=== PATIENT | female | born 1980 | race Caucasian/White ===

== ENCOUNTER 2018-03-05 14:30 | Observation (INO) | payer BC ==
[2018-03-05] MEDS: Sodium Chloride 0.9% 1,000 ML IV SCH (14:45)
[2018-03-05] MEDS ORDERED: Lisinopril 10 MG Tab PO ONE (15:28)
[2018-03-05] MEDS: Ondansetron 4 MG/2 ML SDV IV PRN ×2 (15:48→19:18)
[2018-03-05] MEDS: Ciprofloxacin in D5W 400 MG in Premix Bag 1 BAG IV SCH ×2 (15:51)
[2018-03-05] MEDS: Morphine 2 MG/ML Syringe IVPUSH PRN ×2 (17:35→19:18)
[2018-03-05] MEDS ORDERED: Cyclobenzaprine 10 MG Tab PO PRN (18:32)
[2018-03-05] MEDS ORDERED: ALPRAZolam 0.25 MG Tab PO PRN (18:39)
[2018-03-05] MEDS: Pantoprazole 40 MG Vial IVPUSH SCH (19:18)
[2018-03-05] MEDS ORDERED: Dicyclomine 10 MG Cap PO PRN (20:50)
[2018-03-05] MEDS ORDERED: HYDROmorphone 1 MG/ML Syringe IVPUSH PRN (20:51)
[2018-03-05] MEDS: Venlafaxine 37.5 MG Tab.ER PO SCH (23:23)
[2018-03-05] MEDS ORDERED: Venlafaxine 37.5 MG Cap.ER ONE (23:23)
[2018-03-06] MEDS: Morphine 2 MG/ML Syringe IVPUSH PRN ×5 (02:31→07:32)
[2018-03-06] MEDS: Sodium Chloride 0.9% 1,000 ML IV SCH ×2 (06:20→23:28)
[2018-03-06] MEDS: Ciprofloxacin in D5W 400 MG in Premix Bag 1 BAG IV SCH ×4 (06:21→18:29)
[2018-03-06] MEDS: Ondansetron 4 MG/2 ML SDV IV PRN (07:30)
[2018-03-06 08:11] LABS: ANION GAP 11.1 mmol/L (5-15); CHLORIDE,CL 103 mmol/L (98-115); SODIUM,NA 138 mmol/L (136-145)
[2018-03-06] MEDS ORDERED: Metoprolol Succinate 25 MG Tab.ER PO SCH (09:00)
[2018-03-06] MEDS ORDERED: Venlafaxine 37.5 MG Tab.ER PO SCH (09:00)
[2018-03-06] MEDS: Pantoprazole 40 MG Vial IVPUSH SCH (10:32)
[2018-03-06] MEDS: Acetaminophen 500 MG Tab PO PRN ×2 (10:53→23:27)
[2018-03-06] MEDS ORDERED: Sodium Chloride 0.9% 50 ML IV SCH (11:15)
[2018-03-06] MEDS ORDERED: Diatrizoate Meglumine/Diatrizoate Sodium 37% 120 ML Bottle PO ONE (11:15)
[2018-03-06] MEDS ORDERED: Iopamidol 612 MG/ML 75 ML Bottle IV ONE (11:15)
--- NOTE | 2018-03-06 13:12 | PCM.PN ---
- General Info Date of Service: 03/06/18 Functional Status: Reports: Pain Controlled (improved with morphine use), Tolerating Diet, Urinating. Denies: Ambulating - Review of Systems General: Reports: Weakness, Fatigue, Malaise, Chills. Denies: Fever HEENT: Denies: Headaches Pulmonary: Denies: Shortness of Breath Cardiovascular: Reports: Lightheadedness. Denies: Chest Pain, Palpitations Gastrointestinal: Reports: Abdominal Pain, Decreased Appetite, Diarrhea, Melena , Nausea. Denies: Hematochezia, Vomiting Genitourinary: Reports: No Symptoms Neurological: Reports: Dizziness. Denies: Headache Psychiatric: Reports: No Symptoms - Patient Data Vitals - Most Recent: Last Vital Signs Temp 97.5 F 03/06/18 11:00 Pulse 77 03/06/18 11:00 Resp 16 03/06/18 11:00 BP 106/65 03/06/18 11:00 Pulse Ox 98 03/06/18 11:00 Weight - Most Recent: 268 lb 8 oz I&O - Last 24 Hours: Intake & Output 03/05/18 03/06/18 03/06/18 22:59 06:59 14:59 Intake Total 100 1156 Output Total 300 Balance -200 1156 Lab Results Last 24 Hours: Laboratory Results - last 24 hr 03/06/18 03/06/18 Range/Units 07:10 07:10 WBC 13.65 H (5.00-10.00) 10^3/uL RBC 4.46 (3.80-5.50) 10^6/uL Hgb 13.4 (12.0-16.0) g/dL Hct 38.9 (37.0-47.0) % MCV 87.2 (82.0-92.0) fL MCH 30.0 (27.0-31.0) pg MCHC 34.4 (32.0-36.0) g/dL RDW 13.4 (11.5-14.5) % Plt Count 291 (150-400) 10^3/uL MPV 9.7 (7.4-10.4) fL Immature Gran % (Auto) 0.1 (0.0-5.0) % Neut % (Auto) 67.2 (50.0-70.0) % Lymph % (Auto) 21.9 (20.0-40.0) % [place] % (Auto) 8.0 (2.0-8.0) % Eos % (Auto) 2.7 (1.0-3.0) % Baso % (Auto) 0.1 (0.0-1.0) % Immature Gran # (Auto) 0.02 (0.00-0.50) 10^3/uL Neut # (Auto) 9.16 H (2.50-7.00) 10^3/uL Lymph # (Auto) 2.99 (1.00-4.00) 10^3/uL [place] # (Auto) 1.09 H (0.10-0.80) 10^3/uL Eos # (Auto) 0.37 H (0.10-0.30) 10^3/uL Baso # (Auto) 0.02 (0.00-0.10) 10^3/uL Sodium 138 (136-145) mmol/L Potassium 3.4 (3.3-5.3) mmol/L Chloride 103 (98-115) mmol/L Carbon Dioxide 27.3 (21.0-32.0) mmol/L Anion Gap 11.1 (5-15) mmol/L BUN 10 (6-25) mg/dL Creatinine 0.83 (0.51-1.17) mg/dL Est Cr Clr Drug Dosing 83.51 mL/min Estimated GFR (MDRD) > 60 mL/min Glucose 124 mg/dL Calcium 8.1 L (8.7-10.3) mg/dL Med Orders - Current: Current Medications Acetaminophen (Tylenol Extra Strength) 1,000 mg PO Q6H PRN PRN Reason: Pain Last Admin: 03/06/18 10:53 Dose: 1,000 mg Alprazolam (Xanax) 0.25 - 0.5 mg PO Q8H PRN PRN Reason: ANXIETY Cyclobenzaprine HCl (Flexeril) 10 mg PO DAILY PRN PRN Reason: Muscle Spasm Dicyclomine HCl (Bentyl) 10 mg PO TID PRN PRN Reason: Cramping Last Admin: 03/05/18 23:22 Dose: 10 mg Ciprofloxacin/Dextrose 400 mg/ (Premix) 200 mls @ 200 mls/hr IV BID@0700,1900 [facility] Last Admin: 03/06/18 06:21 Dose: 200 mls/hr Sodium Chloride (Normal Saline) 1,000 mls @ 75 mls/hr IV ASDIRECTED [facility] Last Admin: 03/06/18 06:20 Dose: 75 mls/hr Metoprolol Succinate (Toprol Xl) 25 mg PO DAILY [facility] Morphine Sulfate (Morphine) 2 mg IVPUSH Q1H PRN PRN Reason: Pain (moderate 4-6) Last Admin: 03/06/18 07:32 Dose: 2 mg Ondansetron HCl (Zofran) 4 mg IV Q4H PRN PRN Reason: Nausea/Vomiting Last Admin: 03/06/18 07:30 Dose: 4 mg Pantoprazole Sodium (Protonix Iv) 40 mg IVPUSH DAILY [facility] Last Admin: 03/06/18 10:32 Dose: 40 mg Venlafaxine HCl (Effexor Xr) 75 mg PO BEDTIME [facility] Last Admin: 03/05/18 23:23 Dose: 75 mg Discontinued Medications Hydromorphone HCl (Dilaudid) 1 mg IVPUSH Q4H PRN PRN Reason: Pain Last Admin: 03/05/18 22:05 Dose: 1 mg Lisinopril (Prinivil) 10 mg PO ONETIME ONE Stop: 03/05/18 15:29 Last Admin: 03/05/18 15:05 Dose: 10 mg Morphine Sulfate (Morphine) 2 mg IVPUSH Q2H PRN PRN Reason: Pain (moderate 4-6) Last Admin: 03/05/18 19:18 Dose: 2 mg Venlafaxine HCl (Effexor Xr) 75 mg PO DAILY [facility] - Exam Quality Assessment: No: Supplemental Oxygen, DVT Prophylaxis (score 0) General: Alert, Oriented, Cooperative, Mild Distress Lungs: Clear to Auscultation, Normal Respiratory Effort Cardiovascular: Regular Rhythm, No Murmurs, Tachycardia GI/Abdominal Exam: Soft, No Distention, Tender (epigastric, RUQ, and LUQ), Abnormal Bowel Sounds (hyperactive) Skin: Warm, Dry Neurological: Normal Speech Psy/Mental Status: Alert, Normal Affect - Problem List Review Problem List Initiated/Reviewed/Updated: Yes - My Orders Last 24 Hours: My Active Orders 03/05/18 14:30 Patient Status [ADT] Routine 03/05/18 15:23 Oxygen Therapy [RC] PRN Up ad Nelida [RC] DAILY VTE/DVT Education [RC] PER UNIT ROUTINE Vital Signs [RC] 0300,0700,1100,1500,1900,2300 Ondansetron [Zofran] 4 mg IV Q4H PRN Resuscitation Status Routine 03/05/18 15:26 Intake and Output [RC] 0600,1400,2200 03/05/18 15:30 Ciprofloxacin in D5W [Cipro in D5W 400 MG/200 ML] 400 mg Premix Bag 1 bag IV BID@0700,1900 Sodium Chloride 0.9% [Normal Saline] 1,000 ml IV ASDIRECTED 03/05/18 18:32 Cyclobenzaprine [Flexeril] 10 mg PO DAILY PRN 03/05/18 18:39 ALPRAZolam [Xanax] 0.25 - 0.5 mg PO Q8H PRN 03/05/18 18:45 Pantoprazole [ProTONIX IV] 40 mg IVPUSH DAILY 03/05/18 20:50 Dicyclomine [Bentyl] 10 mg PO TID PRN 03/05/18 23:15 Venlafaxine [Effexor XR] 75 mg PO BEDTIME 03/05/18 23:25 Morphine 2 mg IVPUSH Q1H PRN 03/05/18 Dinner Full Liquid Diet [DIET] 03/06/18 08:00 Abdomen Pelvis w wo Cont [CT] Routine 03/06/18 09:00 Metoprolol Succinate [Toprol XL] 25 mg PO DAILY 03/06/18 10:39 Acetaminophen [Tylenol Extra Strength] 1,000 mg PO Q6H PRN - Plan Plan:: HPI: This is a 37 year old female who presented to the [facility] yesterday with concerns of bloody diarrhea and vomiting. The patient questioned food poisoning from a restaurant the day prior as she states the diarrhea, chills, and vomiting happened about 12 hours later. No recent antibiotic use. 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 She has not had any abdominal surgeries. She does have a history of hemorrhoids , but denies any current issues. The patient had also been seen in the clinic recently for tachycardia and hypertension and started on toprol XL 25 mg daily. The patient was found to have a WBC of 20.6 with a left shift, so was subsequently admitted for antibiotics and fluids. Primary Impression/Plan: Colitis of transverse & ascending colon. Patient underwent CT abd/pelvis which noted "colitis involving transverse & ascending colon; pseudomembranous colitis is a consideration; ulcerative colitis is a another consideration". Cdiff is negative. Stool lactoferrin and basic enteric pathogen panel pending. WBC improved to 13.6 with no left shift. BMP stable. Continue cipro IV 400 mg BID. Continue IVF of NS at 75 mL/hr. Continue with zofran PRN, tylenol PRN, and morphine PRN. Patient given dilaudid 1 time for severe pain last night, but had a little trouble breathing so this was discontinued. Changed bentyl to 10 mg po TID scheduled. Patient has been afebrile. Will advance to soft diet for supper. Patient will likely need a colonoscopy as outpatient. No prior history of intestinal or bleeding issues. Will add toradol 15 mg IV q6 hours for pain. Repeat labs in AM. Tachycardia. HR 70-110s. Holding toprol XL. Hypertension. BP 106/65 with pulse of 77. She did receive a 1 time dose of lisinopril 10 mg on admission for BP of 142/102. Secondary Impression/Plan: Vitamin D deficiency, history. History of migraines without aura. Obesity. Depression. Continue effexor XR and xanax. Pedal edema. Patient has HCTZ to use as needed. This is on hold. DVT prophylaxis. Score 0. GI prophylaxis. Protonix 40 mg IV daily. Overall plan: Continue with IV fluids, antibiotics, and pain/nausea control. If patient able to keep soft diet down without issues and pain under control, she will likely be able to be discharged tomorrow.
[2018-03-06] MEDS: Ketorolac 30 MG/ML SDV IVPUSH SCH ×2 (14:24→19:36)
[2018-03-06] MEDS: Dicyclomine 10 MG Cap PO SCH ×2 (14:25→20:51)
[2018-03-06] MEDS: Venlafaxine 37.5 MG Tab.ER PO SCH (21:20)
[2018-03-07] MEDS: Ketorolac 30 MG/ML SDV IVPUSH SCH ×2 (01:49→07:01)
[2018-03-07] MEDS: Ciprofloxacin in D5W 400 MG in Premix Bag 1 BAG IV SCH ×2 (07:02)
[2018-03-07 08:37] LABS: ANION GAP 11.3 mmol/L (5-15); CHLORIDE,CL 106 mmol/L (98-115); SODIUM,NA 139 mmol/L (136-145)
[2018-03-07] MEDS: Dicyclomine 10 MG Cap PO SCH (09:08)
[2018-03-07] MEDS: Pantoprazole 40 MG Vial IVPUSH SCH (09:09)
--- NOTE | 2018-03-07 10:47 | PCM.DCSUM1 ---
Discharge Summary - Hospital Course Brief History: This is a 37 year old female who presented to the [facility] on 03/05/18 with concerns of vomiting and bloody diarrhea. The patient had questioned food poisoning from a local restaurant as the symptoms came on about 8-12 hours after eating there. No recent antibiotic use. 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 She was placed on toprol XL 25 mg daily. She was found to have an elevated WBC of 20.6 and was subsequently admitted for fluids and antibiotics. Denies past history of intestinal issues. No abdominal sugeries. She does have a history of hemorrhoids, but denies a current flare-up. Diagnosis: Stroke: No - Discharge Data Discharge Date: 03/07/18 Discharge Disposition: Home, Self-Care 01 Condition: Good - Patient Summary/Data Complications: None. Consults: None. Labs Pending at D/C: None. - Patient Instructions Diet, Other: Soft diet for the next two days. Then may advance diet as tolerated. Activity: As Tolerated, Rest and Relax Today Driving: May Drive Today Showering/Bathing: May Shower Notify Provider of: Fever, Increased Pain, Nausea and/or Vomiting (Increased diarrhea or bloody diarrhea, dizziness) - Discharge Plan *PRESCRIPTION DRUG MONITORING PROGRAM REVIEWED*: No *COPY OF PRESCRIPTION DRUG MONITORING REPORT IN PATIENT KENDAL: No Prescriptions/Med Rec: Ciprofloxacin HCl [Cipro] 500 mg PO BID #10 tablet Dicyclomine [Bentyl] 10 mg PO TID PRN #10 cap PRN Reason: abdominal cramps Omeprazole 20 mg PO DAILY #10 cap.sr Ondansetron [Zofran ODT] 4 mg PO Q6H PRN #15 tab.dis PRN Reason: Nausea Home Medications: Home Meds ALPRAZolam [Xanax] 0.25 - 0.5 mg PO Q8H PRN 03/05/18 [History] Cyclobenzaprine [Flexeril] 10 mg PO DAILY PRN 03/05/18 [History] Venlafaxine [Effexor XR] 75 mg PO DAILY 03/05/18 [History] hydroCHLOROthiazide [Hydrochlorothiazide] 25 mg PO DAILY PRN 03/05/18 [History] Acetaminophen [Tylenol Extra Strength] 1,000 mg PO Q6H PRN tablet 03/07/18 [Rx] Ciprofloxacin HCl [Cipro] 500 mg PO BID #10 tablet 03/07/18 [Rx] Dicyclomine [Bentyl] 10 mg PO TID PRN #10 cap 03/07/18 [Rx] Metoprolol Succinate [Toprol XL] 12.5 mg PO DAILY #15 tab 03/07/18 [Rx] Metoprolol Succinate [Toprol XL] 12.5 mg PO DAILY #15 tab.er 03/07/18 [Rx] Omeprazole 20 mg PO DAILY #10 cap.sr 03/07/18 [Rx] Ondansetron [Zofran ODT] 4 mg PO Q6H PRN #15 tab.dis 03/07/18 [Rx] Referrals: Mariella Fagan MD [Physician] - 03/10/18 - Discharge Summary/Plan Comment DC Time >30 min.: No Discharge Summary/Plan Comment: Date of admission: 03/05/18 Date of discharge: 03/07/18 Admitting Diagnosis: Primary: Bloody diarrhea, Leukocytosis, Hypertension, Tachycardia Secondary: Vitamin D deficiency, history of migraines without aura, obesity, depression, pedal edema. Final Diagnosis: Primary: Colitis of transverse & ascending colon, improving; Leukocytosis, improving; Hypertension, stable; Tachycardia, stable. Secondary: Vitamin D deficiency, history of migraines without aura, obesity, depression, pedal edema. Procedures performed: None Hospital Course: The patient's hospital course progressed as expected. The patient underwent a CT abd/pelvis that revealed "colitis involving transverse & ascending colon; pseudomembranous colitis is a consideration; ulcerative colitis is a another consideration". She had a positive lactoferrin stool test. The basic enteric pathogen panel and Cdiff were negative. She was treated with IV Cipro 400 mg BID. She was given IV fluids. She initially followed a full liquid diet and advanced to soft the day prior to discharge without increased pain or nausea/ vomiting. The patient remained afebrile. The WBC improved and was 11.9 on discharge with a left shift of 71.2%. She was given IV morphine initially for pain without much improvement. She was given a 1 time dose of dilaudid that did help the pain, but gave her a "lump" in her throat so this was discontinued. She was given IV toradol 15 mg scheduled and bentyl 10 mg TID scheduled with improvement noted. The stools were no longer bloody and continued to be brown diarrhea-like on the day of discharge. She was given IV protonix for GI prophylaxis. The patient's hemoglobin did go down some from admission, however this could be dilutional effect as well. Discharge hemoglobin 12.4. The patient' s admission blood pressure was 142/102 and she was given a 1 time dose of lisinopril 10 mg that brought it into the normal range. Her toprol XL was held during her stay as she was 100-110s systolic and pulse between 70-110s. New medications on discharge: -Cipro 500 mg po BID x 10 doses (total of 1 week given) -Bentyl 10 mg po TID PRN for abdominal cramps -Zofran ODT 4 mg po every 4 hours PRN nausea -Omeprazole 20 mg po daily x 1 week -Tylenol 1000 mg po every 6 hours PRN pain -Ibuprofen 600 mg po every 8 hours PRN pain New changes to home medications on discharge: -Decrease toprol XL to 12.5 mg po daily -Hold diclofenac Regular home medications on discharge: -Alprazolam 0.25-0.5 mg po every 8 hours PRN -Effexor XR 75 mg po daily -HCTZ 25 mg po daily PRN edema -Flexeril 10 mg po daily PRN Condition, Treatment, & Final Disposition: The patient is in stable condition at the time of discharge. She will be discharged home per self. She will follow- up in the clinic this week with Dr. Fagan. Discussed with patient that she will likely need a colonoscopy for further evaluation. Considerations at follow- up would include repeat hemoglobin, blood pressure and pulse evaluation, and discussion of possible Holter monitor for tachycardia episodes. - General Info Date of Service: 03/07/18 Functional Status: Reports: Pain Controlled, Tolerating Diet, Ambulating, Urinating. Denies: New Symptoms - Review of Systems General: Reports: Weakness, Fatigue, Chills. Denies: Fever HEENT: Reports: Glasses, Headaches Pulmonary: Denies: Shortness of Breath Cardiovascular: Reports: Lightheadedness. Denies: Chest Pain, Palpitations, Edema Gastrointestinal: Reports: Abdominal Pain, Decreased Appetite (tolerating a soft diet okay), Diarrhea (improved, last stool was not bloody). Denies: Nausea , Vomiting Genitourinary: Reports: No Symptoms Neurological: Reports: Dizziness, Headache Psychiatric: Reports: No Symptoms - Patient Data Vitals - Most Recent: Last Vital Signs Temp 98.5 F 03/07/18 07:00 Pulse 80 03/07/18 07:00 Resp 16 03/07/18 07:00 BP 116/74 03/07/18 07:00 Pulse Ox 97 03/07/18 07:00 Weight - Most Recent: 268 lb 8 oz I&O - Last 24 hours: Intake & Output 03/06/18 03/07/18 03/07/18 22:59 06:59 14:59 Intake Total 1181 1040 Output Total 600 900 Balance 581 140 Lab Results - Last 24 hrs: Laboratory Results - last 24 hr 03/07/18 03/07/18 03/07/18 Range/Units 07:30 07:40 07:40 WBC 11.92 H (5.00-10.00) 10^3/uL RBC 4.09 (3.80-5.50) 10^6/uL Hgb 12.4 (12.0-16.0) g/dL Hct 36.7 L (37.0-47.0) % MCV 89.7 (82.0-92.0) fL MCH 30.3 (27.0-31.0) pg MCHC 33.8 (32.0-36.0) g/dL RDW 13.2 (11.5-14.5) % Plt Count 267 (150-400) 10^3/uL MPV 9.6 (7.4-10.4) fL Immature Gran % (Auto) 0.2 (0.0-5.0) % Neut % (Auto) 71.2 H (50.0-70.0) % Lymph % (Auto) 18.7 L (20.0-40.0) % [place] % (Auto) 7.0 (2.0-8.0) % Eos % (Auto) 2.7 (1.0-3.0) % Baso % (Auto) 0.2 (0.0-1.0) % Immature Gran # (Auto) 0.02 (0.00-0.50) 10^3/uL Neut # (Auto) 8.49 H (2.50-7.00) 10^3/uL Lymph # (Auto) 2.23 (1.00-4.00) 10^3/uL [place] # (Auto) 0.84 H (0.10-0.80) 10^3/uL Eos # (Auto) 0.32 H (0.10-0.30) 10^3/uL Baso # (Auto) 0.02 (0.00-0.10) 10^3/uL Sodium 139 (136-145) mmol/L Potassium 4.0 (3.3-5.3) mmol/L Chloride 106 (98-115) mmol/L Carbon Dioxide 25.7 (21.0-32.0) mmol/L Anion Gap 11.3 (5-15) mmol/L BUN 9 (6-25) mg/dL Creatinine 0.81 (0.51-1.17) mg/dL Est Cr Clr Drug Dosing 85.57 mL/min Estimated GFR (MDRD) > 60 mL/min Glucose 110 mg/dL Calcium 7.9 L (8.7-10.3) mg/dL Magnesium 1.9 (1.8-2.4) mg/dL Albumin 2.72 L (3.00-4.80) g/dL Med Orders - Current: Current Medications Acetaminophen (Tylenol Extra Strength) 1,000 mg PO Q6H PRN PRN Reason: Pain Last Admin: 03/06/18 23:27 Dose: 1,000 mg Alprazolam (Xanax) 0.25 - 0.5 mg PO Q8H PRN PRN Reason: ANXIETY Cyclobenzaprine HCl (Flexeril) 10 mg PO DAILY PRN PRN Reason: Muscle Spasm Dicyclomine HCl (Bentyl) 10 mg PO TID [facility] Last Admin: 03/07/18 09:08 Dose: 10 mg Ciprofloxacin/Dextrose 400 mg/ (Premix) 200 mls @ 200 mls/hr IV BID@0700,1900 [facility] Last Admin: 03/07/18 07:02 Dose: 200 mls/hr Sodium Chloride (Normal Saline) 1,000 mls @ 75 mls/hr IV ASDIRECTED [facility] Last Admin: 03/06/18 23:28 Dose: 75 mls/hr Ketorolac Tromethamine (Toradol) 15 mg IVPUSH Q6H [facility] Stop: 03/11/18 13:25 Last Admin: 03/07/18 07:01 Dose: 15 mg Metoprolol Succinate (Toprol Xl) 25 mg PO DAILY [facility] Morphine Sulfate (Morphine) 2 mg IVPUSH Q1H PRN PRN Reason: Pain (moderate 4-6) Last Admin: 03/06/18 07:32 Dose: 2 mg Ondansetron HCl (Zofran) 4 mg IV Q4H PRN PRN Reason: Nausea/Vomiting Last Admin: 03/06/18 07:30 Dose: 4 mg Pantoprazole Sodium (Protonix Iv) 40 mg IVPUSH DAILY [facility] Last Admin: 03/07/18 09:09 Dose: 40 mg Venlafaxine HCl (Effexor Xr) 75 mg PO BEDTIME [facility] Last Admin: 03/06/18 21:20 Dose: 75 mg Discontinued Medications Dicyclomine HCl (Bentyl) 10 mg PO TID PRN PRN Reason: Cramping Last Admin: 03/05/18 23:22 Dose: 10 mg Hydromorphone HCl (Dilaudid) 1 mg IVPUSH Q4H PRN PRN Reason: Pain Last Admin: 03/05/18 22:05 Dose: 1 mg Lisinopril (Prinivil) 10 mg PO ONETIME ONE Stop: 03/05/18 15:29 Last Admin: 03/05/18 15:05 Dose: 10 mg Morphine Sulfate (Morphine) 2 mg IVPUSH Q2H PRN PRN Reason: Pain (moderate 4-6) Last Admin: 03/05/18 19:18 Dose: 2 mg Venlafaxine HCl (Effexor Xr) 75 mg PO DAILY [facility] - Exam Quality Assessment: Denies: Supplemental Oxygen, DVT Prophylaxis General: Reports: Alert, Oriented, Cooperative, No Acute Distress Lungs: Reports: Clear to Auscultation, Normal Respiratory Effort Cardiovascular: Reports: Regular Rate, Regular Rhythm, No Murmurs GI/Abdominal Exam: Soft, Non-Tender, No Distention, Abnormal Bowel Sounds ( hyperactive x 4 quadrants) Skin: Reports: Warm, Dry Neurological: Reports: Normal Speech Psy/Mental Status: Reports: Alert, Normal Affect, Normal Mood
== END 2018-03-07 11:15 | disposition home or self-care (01) ==
LOC: KA.MS 14:30
PROVIDERS: ADMIT Nurse Practitioner Family; ATTEND Nurse Practitioner Family
DX: K52.9 Noninfective gastroenteritis and colitis, unspecified (principal); R00.0 Tachycardia, unspecified; I10 Essential (primary) hypertension; E66.9 Obesity, unspecified; F32.9 Major depressive disorder, single episode, unspecified; R60.9 Edema, unspecified; Z79.899 Other long term (current) drug therapy; Z91.040 Latex allergy status
CPT/HCPCS: 36415; 74177; 80048; 82040; 83735; 85025; A9270; C9113; J0744; J1170; J1885; J2270; J2405; J7030; J7050; Q9963; Q9967; 96365; 96366; 96375; 96376; G0378; G0379

== ENCOUNTER 2018-09-20 10:25 | Emergency (ER) | payer BC ==
[2018-09-20] MEDS ORDERED: Sodium Chloride 0.9% 10 ML Syringe FLUSH PRN (10:41)
[2018-09-20] MEDS ORDERED: Sodium Chloride 0.9% 1,000 ML IV ONE (10:41)
--- NOTE | 2018-09-20 10:56 | EDM.PDOC ---
ED HPI GENERAL MEDICAL PROBLEM - General Stated Complaint: heart racing Time Seen by Provider: 09/20/18 10:25 Source of Information: Reports: Patient History Limitations: Reports: No Limitations - History of Present Illness INITIAL COMMENTS - FREE TEXT/NARRATIVE: Patient presents with heart racing that started about 10-15 minutes ago. She denies any chest pain but can tell when it is very fast by a pounding sensation coming from the mid-sternal area. When the rate comes down, even briefly, the pounding disappears. She also feels a lump in her throat and some dyspnea, but no pain in neck, jaw or arms. She has had these episodes at least 1-2x/week for the past two months. They usually last no longer than 10 minutes so today was her longest episode. She used to take metoprolol for tachycardia but it was discontinued last February after a bout with colitis. She says it was initiated to control heart rates in the 120's and up to 140's but never like the last two months. She isn't on anything for rate control currently. She had a Holter monitor placed last Fall in [facility] when she was started on the metoprolol, which she only took for a couple weeks before it was dc'd while hospitalized with colitis. - Related Data Allergies Allergy/AdvReac Type Severity Reaction Status Date / Time hydromorphone [From Dilaudid] Allergy Shortness Verified 09/20/18 10:57 of Breath latex Allergy Rash Verified 03/05/18 14:57 Home Meds: Home Meds ALPRAZolam [Xanax] 0.25 - 0.5 mg PO Q8H PRN 03/05/18 [History] Cyclobenzaprine [Flexeril] 10 mg PO DAILY PRN 03/05/18 [History] Venlafaxine [Effexor XR] 75 mg PO DAILY 03/05/18 [History] hydroCHLOROthiazide [Hydrochlorothiazide] 25 mg PO DAILY PRN 03/05/18 [History] Acetaminophen [Tylenol Extra Strength] 1,000 mg PO Q6H PRN tablet 03/07/18 [Rx] Cholecalciferol (Vitamin D3) [Vitamin D3] 1,000 units PO DAILY 09/20/18 [History ] Cyanocobalamin (Vitamin B12) [Vitamin B13] 500 mcg PO 09/20/18 [History] Past Medical History Cardiovascular History: Reports: Hypertension Genitourinary History: Reports: UTI, Recurrent 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 Musculoskeletal History: Reports: Arthritis - Infectious Disease History Infectious Disease History: Reports: Chicken Pox - Past Surgical History HEENT Surgical History: Reports: Tonsillectomy Other HEENT Surgeries/Procedures: pseudo tumor cerebri in 2002 Social & Family History - Family History Family Medical History: Noncontributory - Caffeine Use Caffeine Use: Reports: Coffee, Soda Other Caffeine Use: 1 pop/ day ED ROS GENERAL - Review of Systems Review Of Systems: See Below Constitutional: Denies: Fever, Malaise, Weakness HEENT: Reports: No Symptoms Respiratory: Reports: Shortness of Breath. Denies: Cough Cardiovascular: Reports: Palpitations. Denies: Chest Pain, Syncope Endocrine: Reports: No Symptoms GI/Abdominal: Denies: Abdominal Pain, Nausea, Vomiting : Denies: Dysuria, Flank Pain Musculoskeletal: Denies: Neck Pain, Shoulder Pain, Arm Pain, Back Pain, Hand Pain, Leg Pain Skin: Denies: Cyanosis, Jaundice, Mottled, Pallor, Diaphoresis Neurological: Denies: Confusion, Dizziness, Headache, Seizure, Syncope, Weakness , Change in Speech Psychiatric: Reports: Anxiety. Denies: Agitation, Confusion ED EXAM, GENERAL - Physical Exam Exam: See Below Exam Limited By: No Limitations General Appearance: Alert, WD/WN, No Apparent Distress Eye Exam: Bilateral Eye: EOMI, Normal Inspection, PERRL Ears: Normal External Exam, Hearing Grossly Normal Nose: Normal Inspection, No Blood Throat/Mouth: Normal Inspection, Normal Lips, Normal Voice, No Airway Compromise Head: Atraumatic, Normocephalic Neck: Normal Inspection, Supple, Non-Tender, Full Range of Motion. No: Carotid Bruit Respiratory/Chest: No Respiratory Distress, Lungs Clear, Normal Breath Sounds, No Accessory Muscle Use Cardiovascular: No Edema, No Gallop, No JVD, No Murmur, No Rub, Tachycardia Peripheral Pulses: 2+: Carotid (L), Carotid (R), Radial (L), Radial (R) GI/Abdominal: Normal Bowel Sounds, Soft, Non-Tender, No Organomegaly, No Distention Back Exam: Normal Inspection, Full Range of Motion. No: CVA Tenderness (L), CVA Tenderness (R) Extremities: Normal Inspection, Normal Range of Motion Neurological: Alert, Oriented, Normal Cognition, No Motor/Sensory Deficits Psychiatric: Normal Affect, Normal Mood Skin Exam: Warm, Dry, Intact, Normal Color, No Rash Course - Vital Signs Last Recorded V/S: Last Vital Signs Temp 97.8 F 09/20/18 10:30 Pulse 87 09/20/18 12:27 Resp 17 09/20/18 12:27 BP 133/72 09/20/18 12:27 Pulse Ox 97 09/20/18 12:27 - Orders/Labs/Meds Orders: Active Orders 24 hr Category Date Time Status EKG Documentation Completion [RC] ASDIRECTED Care 09/20/18 10:41 Active Saline Lock Insert [OM.PC] Routine Oth 09/20/18 10:41 Ordered Labs: Laboratory Tests 09/20/18 09/20/18 09/20/18 Range/Units 10:30 10:30 10:30 WBC 11.62 H (5.00-10.00) 10^3/uL RBC 5.05 (3.80-5.50) 10^6/uL Hgb 15.0 D (12.0-16.0) g/dL Hct 42.6 (37.0-47.0) % MCV 84.4 D (82.0-92.0) fL MCH 29.7 (27.0-31.0) pg MCHC 35.2 (32.0-36.0) g/dL RDW 13.1 (11.5-14.5) % Plt Count 359 D (150-400) 10^3/uL MPV 9.7 (7.4-10.4) fL Immature Gran % (Auto) 0.2 (0.0-5.0) % Neut % (Auto) 54.3 (50.0-70.0) % Lymph % (Auto) 35.5 (20.0-40.0) % [place] % (Auto) 7.6 (2.0-8.0) % Eos % (Auto) 2.1 (1.0-3.0) % Baso % (Auto) 0.3 (0.0-1.0) % Immature Gran # (Auto) 0.02 (0.00-0.50) 10^3/uL Neut # (Auto) 6.33 (2.50-7.00) 10^3/uL Lymph # (Auto) 4.12 H (1.00-4.00) 10^3/uL [place] # (Auto) 0.88 H (0.10-0.80) 10^3/uL Eos # (Auto) 0.24 (0.10-0.30) 10^3/uL Baso # (Auto) 0.03 (0.00-0.10) 10^3/uL D-Dimer, Quantitative < 100 (<400) ng/mL Sodium 141 (136-145) mmol/L Potassium 3.7 (3.3-5.3) mmol/L Chloride 103 (98-115) mmol/L Carbon Dioxide 24.1 (21.0-32.0) mmol/L Anion Gap 17.6 H (5-15) mmol/L BUN 14 (6-25) mg/dL Creatinine 0.84 (0.51-1.17) mg/dL Est Cr Clr Drug Dosing 82.51 mL/min Estimated GFR (MDRD) > 60 mL/min Glucose 104 H (75 - 99) mg/dL Calcium 9.0 (8.7-10.3) mg/dL Total Bilirubin 0.6 (0.2-1.0) mg/dL AST 19 (15-37) U/L ALT 23 (12-78) U/L Alkaline Phosphatase 111 (46-116) IU/L Troponin I 0.05 (0.00-0.070) ng/mL Total Protein 7.7 (6.4-8.2) g/dL Albumin 3.80 (3.00-4.80) g/dL Specimen Type Urine Color (YELLOW) Urine Appearance (CLEAR) Urine pH (5.0-9.0) Ur Specific [place] (1.005-1.030) Urine Protein (NEGATIVE) mg/dL Urine Glucose (UA) (NEGATIVE) mg/dL Urine Ketones (NEGATIVE) mg/dL Urine Occult Blood (NEGATIVE) Urine Nitrite (NEGATIVE) Urine Bilirubin (NEGATIVE) Urine Urobilinogen (0.2-1.0) E.U./dL Ur Leukocyte Esterase (NEGATIVE) Urine RBC (0-5) /HPF Urine WBC (0-5) /HPF Ur Epithelial Cells /LPF Urine Bacteria (NONE TO FEW) /HPF 09/20/18 09/20/18 Range/Units 11:10 12:42 WBC (5.00-10.00) 10^3/uL RBC (3.80-5.50) 10^6/uL Hgb (12.0-16.0) g/dL Hct (37.0-47.0) % MCV (82.0-92.0) fL MCH (27.0-31.0) pg MCHC (32.0-36.0) g/dL RDW (11.5-14.5) % Plt Count (150-400) 10^3/uL MPV (7.4-10.4) fL Immature Gran % (Auto) (0.0-5.0) % Neut % (Auto) (50.0-70.0) % Lymph % (Auto) (20.0-40.0) % [place] % (Auto) (2.0-8.0) % Eos % (Auto) (1.0-3.0) % Baso % (Auto) (0.0-1.0) % Immature Gran # (Auto) (0.00-0.50) 10^3/uL Neut # (Auto) (2.50-7.00) 10^3/uL Lymph # (Auto) (1.00-4.00) 10^3/uL [place] # (Auto) (0.10-0.80) 10^3/uL Eos # (Auto) (0.10-0.30) 10^3/uL Baso # (Auto) (0.00-0.10) 10^3/uL D-Dimer, Quantitative (<400) ng/mL Sodium (136-145) mmol/L Potassium (3.3-5.3) mmol/L Chloride (98-115) mmol/L Carbon Dioxide (21.0-32.0) mmol/L Anion Gap (5-15) mmol/L BUN (6-25) mg/dL Creatinine (0.51-1.17) mg/dL Est Cr Clr Drug Dosing mL/min Estimated GFR (MDRD) mL/min Glucose (75 - 99) mg/dL Calcium (8.7-10.3) mg/dL Total Bilirubin (0.2-1.0) mg/dL AST (15-37) U/L ALT (12-78) U/L Alkaline Phosphatase (46-116) IU/L Troponin I 0.12 H* (0.00-0.070) ng/mL Total Protein (6.4-8.2) g/dL Albumin (3.00-4.80) g/dL Specimen Type Urincc Urine Color Yellow (YELLOW) Urine Appearance Slightly cloudy H (CLEAR) Urine pH 7.0 (5.0-9.0) Ur Specific [place] 1.010 (1.005-1.030) Urine Protein Negative (NEGATIVE) mg/dL Urine Glucose (UA) Negative (NEGATIVE) mg/dL Urine Ketones Negative (NEGATIVE) mg/dL Urine Occult Blood Trace-intact H (NEGATIVE) Urine Nitrite Negative (NEGATIVE) Urine Bilirubin Negative (NEGATIVE) Urine Urobilinogen 0.2 (0.2-1.0) E.U./dL Ur Leukocyte Esterase Negative (NEGATIVE) Urine RBC 0-5 (0-5) /HPF Urine WBC 0-5 (0-5) /HPF Ur Epithelial Cells Few /LPF Urine Bacteria Few (NONE TO FEW) /HPF Meds: Medications Discontinued Medications Generic Name Dose Route Start Last Admin Trade Name Freq PRN Reason Stop Dose Admin Sodium Chloride 1,000 mls @ 999 mls/hr 09/20/18 10:41 09/20/18 11:07 Normal Saline IV 09/20/18 11:41 999 mls/hr .BOLUS ONE Administration Metoprolol Tartrate 50 mg 09/20/18 11:28 09/20/18 11:39 Lopressor PO 09/20/18 11:29 50 mg ONETIME ONE Administration Sodium Chloride 10 ml 09/20/18 10:41 09/20/18 11:09 Saline Flush FLUSH 10 ml Q8HR PRN Administration keep vein open - Re-Assessments/Exams Free Text/Narrative Re-Assessment/Exam: 09/20/18 11:32 Heart rate came down spontaneously from 190's to 105-115 range after exam and fluid bolus. Since she was on metoprolol previously I will give a po dose of metoprolol 50 mg now. Labs and EKG are good. 09/20/18 12:39 HR now 81-87 after metoprolol. BP also down nicely. We will recheck troponin and have patient follow up with her PCP in the clinic this afternoon which she had scheduled earlier and then canceled when she came to ER. 09/20/18 13:01 Discussed findings and plan with patient. She is feeling well now and was discharged in stable condition to go to her clinic appt. We will call her with results of 2nd troponin. 09/20/18 13:50 I called and discussed 2nd troponin of 0.[address] Fagan since patient is now there seeing her in clinic. Initial troponin was 0.05 and repeat was drawn 2 hours and [address] Fagan has our EKG and ER note. She told me she will repeat the EKG and assess patient to determine whether she is going to admit here for non-STEMI vs transfer to [place]. I informed her that I will be of assistance in any way she would like. Also considering whether the bump could be due to cardiac strain from the episode of tachycardia. Departure - Departure Time of Disposition: 12:52 Disposition: Home, Self-Care 01 Condition: Good Clinical Impression: Paroxysmal sinus tachycardia Referrals: Mariella Fagan MD [Primary Care Provider] - Forms: ED Department Discharge Additional Instructions: 1. Go to see your PCP as scheduled at 1:30. 2. We will call you with the results of the second troponin when it is resulted. - My Orders Last 24 Hours: My Active Orders 09/20/18 10:41 EKG Documentation Completion [RC] ASDIRECTED Saline Lock Insert [OM.PC] Routine - Assessment/Plan Last 24 Hours: My Active Orders 09/20/18 10:41 EKG Documentation Completion [RC] ASDIRECTED Saline Lock Insert [OM.PC] Routine
[2018-09-20 11:14] LABS: ANION GAP 17.6 mmol/L (5-15); CHLORIDE,CL 103 mmol/L (98-115); SODIUM,NA 141 mmol/L (136-145)
[2018-09-20] MEDS ORDERED: Metoprolol Tartrate 50 MG Tab PO ONE (11:28)
--- NOTE | 2018-09-20 11:57 | CR ---
[id number] RAD/RAD Chest PA And Lateral EXAM: RAD Chest PA And Lateral INDICATION: TACHYCARDIA. COMPARISON: None. DISCUSSION: Cardiomediastinal silhouette is normal in size and contour. No infiltrate, effusion, pneumothorax, or edema. IMPRESSION: No acute cardiopulmonary abnormality. Geoffrey Connors DO 09/20/18 1156 Thank you for allowing us to participate in the care of your patient.
== END 2018-09-20 13:00 | disposition home or self-care (01) ==
LOC: KA.ED 10:25
DX: I47.1 Supraventricular tachycardia (principal); I10 Essential (primary) hypertension; Z88.5 Allergy status to narcotic agent; Z91.040 Latex allergy status; Z79.899 Other long term (current) drug therapy
CPT/HCPCS: 36415; 71046; 80053; 81001; 84484; 85025; 85379; 93005; 96360; 99285-25; A9270-GY; J7030

== ENCOUNTER 2018-09-20 14:40 | Observation (INO) | payer BC ==
[2018-09-20] MEDS ORDERED: Sodium Chloride 0.9% 10 ML Syringe FLUSH PRN (15:22)
[2018-09-20] MEDS ORDERED: Atropine 0.1 MG/ML 10 ML Syringe IVPUSH PRN (16:25)
[2018-09-20] MEDS ORDERED: Lidocaine 2% 100 MG/5 ML Syringe IVPUSH PRN (16:25)
[2018-09-20] MEDS ORDERED: EPINEPHrine 1:10,000 1 MG/10 ML Syringe IVPUSH PRN (16:25)
[2018-09-20] MEDS ORDERED: Nitroglycerin 0.4 MG Tab.SL SL PRN (16:25)
[2018-09-20] MEDS ORDERED: Heparin Sodium/D5W 25,000 UNITS/250 ML BAG IV SCH (18:00)
--- NOTE | 2018-09-20 18:46 | PCM.DCSUM1 ---
Discharge Summary - Discharge Data Discharge Date: 09/20/18 Discharge Disposition: DC/Tfer to Acute Hospital 02 Condition: Good - Discharge Plan Home Medications: Home Meds ALPRAZolam [Xanax] 0.25 - 0.5 mg PO Q8H PRN 03/05/18 [History] Venlafaxine [Effexor XR] 75 mg PO DAILY 03/05/18 [History] Acetaminophen [Tylenol Extra Strength] 1,000 mg PO Q6H PRN tablet 03/07/18 [Rx] Cholecalciferol (Vitamin D3) [Vitamin D3] 1,000 units PO DAILY 09/20/18 [History ] Cyanocobalamin (Vitamin B12) [Vitamin B13] 500 mcg PO DAILY 09/20/18 [History] Cyclobenzaprine [Flexeril] 10 mg PO ASDIRECTED 09/20/18 [History] Cyclobenzaprine [Flexeril] 10 mg PO ASDIRECTED PRN 09/20/18 [History] medroxyPROGESTERone Acetate [Depo-Provera] 150 mg IM ASDIRECTED 09/20/18 [ History] - Patient Data Vitals - Most Recent: Last Vital Signs Temp 37.0 C 09/20/18 18:00 Pulse 72 09/20/18 18:00 Resp 18 09/20/18 18:00 BP 137/88 09/20/18 18:00 Pulse Ox 98 09/20/18 18:00 Weight - Most Recent: 126.779 kg Lab Results - Last 24 hrs: Laboratory Results - last 24 hr 09/20/18 Range/Units 16:00 Troponin I 0.16 H* (0.00-0.070) ng/mL Med Orders - Current: Current Medications Atropine Sulfate (Atropine 0.1 Mg/Ml) 0 mg IVPUSH ASDIRECTED PRN PRN Reason: Heart Epinephrine HCl (Epinephrine 1:10,000) 1 mg IVPUSH ASDIRECTED PRN PRN Reason: Heart Heparin Sodium/Dextrose () 25,000 units in 250 mls @ 1.268 mls/hr IV TITRATE LEONIE; Protocol Last Admin: 09/20/18 18:26 Dose: 12 units/kg/hr, 15.213 mls/hr Lidocaine HCl (Xylocaine 2%) 0 mg IVPUSH ASDIRECTED PRN PRN Reason: Heart Nitroglycerin (Nitrostat) 0.4 mg SL ASDIRECTED PRN PRN Reason: Heart Last Admin: 09/20/18 17:12 Dose: 0.4 mg Sodium Chloride (Saline Flush) 10 ml FLUSH Q8HR PRN PRN Reason: keep vein open
== END 2018-09-20 18:30 ==
LOC: KA.MS 14:40
PROVIDERS: ADMIT Family Medicine; ATTEND Family Medicine
DX: I21.4 Non-ST elevation (NSTEMI) myocardial infarction (principal); I10 Essential (primary) hypertension; F32.9 Major depressive disorder, single episode, unspecified; E66.01 Morbid (severe) obesity due to excess calories; Z68.42 Body mass index [BMI] 45.0-49.9, adult; Z88.5 Allergy status to narcotic agent; Z91.040 Latex allergy status; Z79.899 Other long term (current) drug therapy; I47.1 Supraventricular tachycardia
CPT/HCPCS: 36415; 71046; 80053; 81001; 84484; 85025; 85379; 93005; 96360; 96365; 99285-25; A9270-GY; G0378; J1644; J7030

== ENCOUNTER 2018-10-25 12:00 | Emergency (ER) | payer BC ==
--- NOTE | 2018-10-25 12:41 | EDM.PDOC ---
ED HPI GENERAL MEDICAL PROBLEM - General Chief Complaint: Cardiovascular Problem Stated Complaint: rapid heart rate Time Seen by Provider: 10/25/18 12:23 Source of Information: Reports: Patient History Limitations: Reports: No Limitations - History of Present Illness INITIAL COMMENTS - FREE TEXT/NARRATIVE: Patient is a 38-year-old female who presents to the emergency department this afternoon with a complaint of racing heart. She has a history of SVT and was been evaluated at [facility] in [place] on 09/20/2018. At that time patient was placed on metoprolol. No EP studies or procedures done at that time. Patient has been asymptomatic up to this point. Patient denies chest pain, shortness of breath, social drugs, change in medication, or over-the- counter stimulants. Onset: Today Onset Date: 10/25/18 Onset Time: 03:00 Duration: Minutes: Location: Reports: Chest Quality: Reports: Other (Palpitations) Improves with: Reports: Other (Spontaneously) Worsens with: Reports: None Context: Denies: Trauma Associated Symptoms: Reports: No Other Symptoms - Related Data Allergies Allergy/AdvReac Type Severity Reaction Status Date / Time hydromorphone [From Dilaudid] Allergy Shortness Verified 10/25/18 12:21 of Breath latex Allergy Rash Verified 10/25/18 12:21 Home Meds: Home Meds ALPRAZolam [Xanax] 0.25 - 0.5 mg PO Q8H PRN 03/05/18 [History] Venlafaxine [Effexor XR] 75 mg PO BEDTIME 03/05/18 [History] Acetaminophen [Tylenol Extra Strength] 1,000 mg PO Q6H PRN tablet 03/07/18 [Rx] Cholecalciferol (Vitamin D3) [Vitamin D3] 1,000 units PO DAILY 09/20/18 [History ] Cyanocobalamin (Vitamin B12) [Vitamin B12] 500 mcg PO DAILY 09/20/18 [History] Cyclobenzaprine [Flexeril] 10 mg PO ASDIRECTED 09/20/18 [History] Metoprolol Succinate [Toprol XL] 37.5 mg PO BID 10/25/18 [History] Past Medical History HEENT History: Reports: Impaired Vision Cardiovascular History: Reports: Hypertension, Other (See Below) Other Cardiovascular History: tachycardia, palpatations Respiratory History: Reports: SOB Gastrointestinal History: Reports: Other (See Below) Other Gastrointestinal History: colitis Genitourinary History: Reports: UTI, Recurrent 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 Musculoskeletal History: Reports: Arthritis Psychiatric History: Reports: Anxiety, Depression Endocrine/Metabolic History: Reports: Obesity/BMI 30+ Dermatologic History: Reports: Eczema - Infectious Disease History Infectious Disease History: Reports: Chicken Pox, Influenza - Past Surgical History HEENT Surgical History: Reports: Tonsillectomy Other HEENT Surgeries/Procedures: pseudo tumor cerebri in 2002 Respiratory Surgical History: Reports: None GI Surgical History: Reports: None Female Surgical History: Reports: None Endocrine Surgical History: Reports: None Musculoskeletal Surgical History: Reports: None Social & Family History - Family History Family Medical History: Noncontributory - Tobacco Use Smoking Status *Q: Never Smoker - Caffeine Use Caffeine Use: Reports: None Other Caffeine Use: 1 pop/ day - Recreational Drug Use Recreational Drug Use: No ED ROS GENERAL - Review of Systems Review Of Systems: ROS reveals no pertinent complaints other than HPI. Constitutional: Reports: Weakness HEENT: Reports: No Symptoms Respiratory: Reports: No Symptoms Cardiovascular: Reports: Lightheadedness, Palpitations Endocrine: Reports: No Symptoms GI/Abdominal: Reports: Nausea : Reports: No Symptoms Musculoskeletal: Reports: No Symptoms Skin: Reports: No Symptoms Neurological: Reports: No Symptoms Psychiatric: Reports: No Symptoms Hematologic/Lymphatic: Reports: No Symptoms Immunologic: Reports: No Symptoms ED EXAM, GENERAL - Physical Exam Exam: See Below Exam Limited By: No Limitations General Appearance: Alert, WD/WN, No Apparent Distress Eye Exam: Bilateral Eye: Normal Inspection Nose: Normal Inspection, Normal Mucosa, No Blood Throat/Mouth: Normal Inspection, Normal Oropharynx, No Airway Compromise Head: Atraumatic, Normocephalic Neck: Normal Inspection, Supple Respiratory/Chest: No Respiratory Distress, Lungs Clear, Normal Breath Sounds, No Accessory Muscle Use, Chest Non-Tender Cardiovascular: Regular Rate, Rhythm, No Murmur, No Rub GI/Abdominal: Normal Bowel Sounds, Soft, Non-Tender Back Exam: Normal Inspection. No: CVA Tenderness (L), CVA Tenderness (R) Extremities: Normal Inspection, No Pedal Edema Neurological: Alert, Oriented, CN II-XII Intact, Normal Cognition, No Motor/ Sensory Deficits Psychiatric: Normal Affect, Normal Mood Skin Exam: Warm, Dry, Intact, Normal Color, No Rash Lymphatic: No Adenopathy EKG INTERPRETATION EKG Date: 10/25/18 Time: 12:10 Rhythm: Other (SVT) Rate (Beats/Min): 180 [place]: Normal P-Wave: Present QRS: Normal ST-T: Other (Nonspecific) Comparison: Change From Previous EKG EKG Interpretation Comments: Repeat EKG at 1233 showed normal sinus rhythm at 75 Course - Vital Signs Last Recorded V/S: Last Vital Signs Temp 97.4 F 10/25/18 12:18 Pulse 81 10/25/18 12:34 Resp 16 10/25/18 12:34 BP 150/81 H 10/25/18 12:34 Pulse Ox 100 10/25/18 12:34 - Orders/Labs/Meds Orders: Active Orders 24 hr Category Date Time Status EKG Documentation Completion [RC] ASDIRECTED Care 10/25/18 12:24 Ordered EKG Documentation Completion [RC] ASDIRECTED Care 10/25/18 12:35 Ordered COMPREHENSIVE METABOLIC PN,CMP [CHEM] Stat Lab 10/25/18 12:24 Ordered INR,PT,PROTHROMBIN TIME [COAG] Stat Lab 10/25/18 12:24 Ordered MAGNESIUM [CHEM] Stat Lab 10/25/18 12:24 Ordered PTT,PARTIAL THROMBOPLSTIN TIME [COAG] Stat Lab 10/25/18 12:24 Ordered EKG 12 Lead [EK] Routine Ther 10/25/18 12:24 Ordered EKG 12 Lead [EK] Routine Ther 10/25/18 12:34 Ordered Labs: Laboratory Tests 10/25/18 Range/Units 12:25 WBC 11.50 H (5.00-10.00) 10^3/uL RBC 4.84 (3.80-5.50) 10^6/uL Hgb 14.6 (12.0-16.0) g/dL Hct 41.6 (37.0-47.0) % MCV 86.0 (82.0-92.0) fL MCH 30.2 (27.0-31.0) pg MCHC 35.1 (32.0-36.0) g/dL RDW 13.0 (11.5-14.5) % Plt Count 334 (150-400) 10^3/uL MPV 9.4 (7.4-10.4) fL Immature Gran % (Auto) 0.1 (0.0-5.0) % Neut % (Auto) 51.9 (50.0-70.0) % Lymph % (Auto) 35.6 (20.0-40.0) % [place] % (Auto) 9.6 H (2.0-8.0) % Eos % (Auto) 2.5 (1.0-3.0) % Baso % (Auto) 0.3 (0.0-1.0) % Immature Gran # (Auto) 0.01 (0.00-0.50) 10^3/uL Neut # (Auto) 5.98 (2.50-7.00) 10^3/uL Lymph # (Auto) 4.09 H (1.00-4.00) 10^3/uL [place] # (Auto) 1.10 H (0.10-0.80) 10^3/uL Eos # (Auto) 0.29 (0.10-0.30) 10^3/uL Baso # (Auto) 0.03 (0.00-0.10) 10^3/uL - Re-Assessments/Exams Free Text/Narrative Re-Assessment/Exam: 10/25/18 12:57 Patient afebrile, vital signs stable, heart rate in the 70s, BP 140s over 80s. Patient states she feels much better. Denies chest pain, shortness of breath, lightheadedness, dizziness, or nausea. Discussed case and reviewed EKGs with Dr. Gilmore, derrick worker at [facility]. Recommendation was to increase metoprolol to 50 mg twice a day, and schedule cardiology follow-up for consideration of EP. 10/25/18 13:04 Patient will be discharged from the ER and follow up now at the clinic for scheduling of cardiology department. Departure - Departure Time of Disposition: 13:05 Disposition: Home, Self-Care 01 Condition: Good Clinical Impression: Palpitations, SVT (supraventricular tachycardia) Instructions: Supraventricular Tachycardia, Adult, [id number] Referrals: Mariella Fagan MD [Primary Care Provider] - Additional Instructions: Follow-up at the [facility] today for cardiology referral. Return to emergency department if symptoms continue or worsen. Increase metoprolol to 50 mg twice a day. - My Orders Last 24 Hours: My Active Orders 10/25/18 12:24 EKG Documentation Completion [RC] ASDIRECTED COMPREHENSIVE METABOLIC PN,CMP [CHEM] Stat INR,PT,PROTHROMBIN TIME [COAG] Stat MAGNESIUM [CHEM] Stat PTT,PARTIAL THROMBOPLSTIN TIME [COAG] Stat EKG 12 Lead [EK] Routine 10/25/18 12:34 EKG 12 Lead [EK] Routine 10/25/18 12:35 EKG Documentation Completion [RC] ASDIRECTED - Assessment/Plan Last 24 Hours: My Active Orders 10/25/18 12:24 EKG Documentation Completion [RC] ASDIRECTED COMPREHENSIVE METABOLIC PN,CMP [CHEM] Stat INR,PT,PROTHROMBIN TIME [COAG] Stat MAGNESIUM [CHEM] Stat PTT,PARTIAL THROMBOPLSTIN TIME [COAG] Stat EKG 12 Lead [EK] Routine 10/25/18 12:34 EKG 12 Lead [EK] Routine 10/25/18 12:35 EKG Documentation Completion [RC] ASDIRECTED Assessment:: SVT Plan: Follow-up with cardiology
[2018-10-25] MEDS ORDERED: Sodium Chloride 0.9% 1,000 ML IV ONE (13:04)
== END 2018-10-25 13:17 | disposition home or self-care (01) ==
LOC: KA.ED 12:00
DX: I47.1 Supraventricular tachycardia (principal); I10 Essential (primary) hypertension; F41.9 Anxiety disorder, unspecified; F32.9 Major depressive disorder, single episode, unspecified; Z91.040 Latex allergy status; Z88.5 Allergy status to narcotic agent; Z79.899 Other long term (current) drug therapy
CPT/HCPCS: 36415; 80053; 83735; 85025; 85610; 85730; 93005; 96360; 99285-25; J7030

== ENCOUNTER 2018-11-29 20:43 | Emergency (ER) | payer BC ==
[2018-11-29] MEDS ORDERED: Sodium Chloride 0.9% 1,000 ML IV ONE ×2 (20:45→22:15)
[2018-11-29] MEDS ORDERED: Ondansetron 4 MG/2 ML SDV ONE (20:56)
[2018-11-29] MEDS ORDERED: Ondansetron 4 MG/2 ML SDV IVPUSH ONE (21:08)
[2018-11-29] MEDS ORDERED: Diltiazem 25 MG/5 ML SDV IVPUSH ONE (21:08)
--- NOTE | 2018-11-29 21:50 | EDM.PDOC ---
ED HPI GENERAL MEDICAL PROBLEM - General Stated Complaint: tachycardia Time Seen by Provider: 11/29/18 21:03 Source of Information: Reports: Patient History Limitations: Reports: No Limitations - History of Present Illness INITIAL COMMENTS - FREE TEXT/NARRATIVE: Patient presents with tachycardia that started while she was napping at home about 1.5 hours ago. She takes Toprol XL 50 mg bid. After the tachy started she took another 25 mg and soon after took her evening dose of 50 mg. She has had probably 100+ episodes of tachycardia in the last two months since this started patient tells me. She saw a overhead door technician in [place] who is managing the Toprol. Last week she also had a sleep study showing severe sleep apnea but hasn't gotten a treatment going for that yet. She says most of the time her tachycardia starts while she is sleeping. She denies chest pain but her chest is starting to feel achy like it always does during or after an episode. Throat Pain Score (Numeric/FACES): 3 - Related Data Allergies Allergy/AdvReac Type Severity Reaction Status Date / Time hydromorphone [From Dilaudid] Allergy Shortness Verified 11/29/18 21:08 of Breath latex Allergy Rash Verified 11/29/18 21:08 Home Meds: Home Meds ALPRAZolam [Xanax] 0.25 - 0.5 mg PO Q8H PRN 03/05/18 [History] Venlafaxine [Effexor XR] 75 mg PO BEDTIME 03/05/18 [History] Acetaminophen [Tylenol Extra Strength] 1,000 mg PO Q6H PRN tablet 03/07/18 [Rx] Cholecalciferol (Vitamin D3) [Vitamin D3] 1,000 units PO DAILY 09/20/18 [History ] Cyanocobalamin (Vitamin B12) [Vitamin B12] 500 mcg PO DAILY 09/20/18 [History] Cyclobenzaprine [Flexeril] 10 mg PO ASDIRECTED 09/20/18 [History] Metoprolol Succinate [Toprol XL] 37.5 mg PO BID 10/25/18 [History] Past Medical History HEENT History: Reports: Impaired Vision Cardiovascular History: Reports: Hypertension, Other (See Below) Other Cardiovascular History: tachycardia, palpatations Respiratory History: Reports: SOB Gastrointestinal History: Reports: Other (See Below) Other Gastrointestinal History: colitis Genitourinary History: Reports: UTI, Recurrent FLASK MAKER History: Reports: , Other (See Below) Other FLASK MAKER History: past history of hemmorrhage 2 days after delivery. Musculoskeletal History: Reports: Arthritis Psychiatric History: Reports: Anxiety, Depression Endocrine/Metabolic History: Reports: Obesity/BMI 30+ Dermatologic History: Reports: Eczema - Infectious Disease History Infectious Disease History: Reports: Chicken Pox, Influenza - Past Surgical History HEENT Surgical History: Reports: Tonsillectomy Other HEENT Surgeries/Procedures: pseudo tumor cerebri in 2002 Respiratory Surgical History: Reports: None GI Surgical History: Reports: None Female Surgical History: Reports: None Endocrine Surgical History: Reports: None Musculoskeletal Surgical History: Reports: None Social & Family History - Family History Family Medical History: Noncontributory - Caffeine Use Caffeine Use: Reports: None Other Caffeine Use: 1 pop/ day ED ROS GENERAL - Review of Systems Review Of Systems: See Below Constitutional: Denies: Fever, Weakness HEENT: Denies: Vision Change Respiratory: Denies: Shortness of Breath, Cough Cardiovascular: Denies: Chest Pain, Lightheadedness, Syncope Endocrine: Reports: No Symptoms GI/Abdominal: Reports: Vomiting (did vomit a few minutes ago in ER). Denies: Abdominal Pain : Denies: Dysuria Musculoskeletal: Denies: Neck Pain, Shoulder Pain, Arm Pain, Back Pain, Hand Pain, Leg Pain Skin: Denies: Cyanosis, Jaundice, Mottled, Pallor, Diaphoresis Neurological: Denies: Confusion, Dizziness, Headache, Seizure, Syncope, Trouble Speaking, Difficulty Walking Psychiatric: Denies: Agitation, Anxiety, Confusion ED EXAM, GENERAL - Physical Exam Exam: See Below Exam Limited By: No Limitations General Appearance: Alert, WD/WN, No Apparent Distress Eye Exam: Bilateral Eye: EOMI, Normal Inspection, PERRL Ears: Normal External Exam, Hearing Grossly Normal Nose: Normal Inspection, No Blood Throat/Mouth: Normal Inspection, Normal Lips, Normal Voice, No Airway Compromise Head: Atraumatic, Normocephalic Neck: Normal Inspection, Supple, Non-Tender, Full Range of Motion Respiratory/Chest: No Respiratory Distress, Lungs Clear, Normal Breath Sounds, No Accessory Muscle Use Cardiovascular: No Murmur, Tachycardia Peripheral Pulses: 1+: Carotid (L), Carotid (R), Radial (L), Radial (R), Posterior Tibial (L), Posterior Tibial (R) GI/Abdominal: Soft, Non-Tender Back Exam: Normal Inspection, Full Range of Motion Extremities: Normal Inspection, Normal Range of Motion Neurological: Alert, Oriented, Normal Cognition, No Motor/Sensory Deficits Psychiatric: Normal Affect, Normal Mood Skin Exam: Warm, Dry, Intact, Normal Color (was a little pale when first in ER but improved a few minutes later), No Rash Course - Vital Signs Last Recorded V/S: Last Vital Signs Temp 97.3 F 11/29/18 20:45 Pulse 170 H 11/29/18 20:45 Resp 18 11/29/18 20:45 BP 81/52 L 11/29/18 20:45 Pulse Ox 99 11/29/18 20:45 - Orders/Labs/Meds Labs: Laboratory Tests 11/29/18 11/29/18 11/29/18 Range/Units 21:45 22:00 22:00 WBC 14.31 H (5.00-10.00) 10^3/uL RBC 4.75 (3.80-5.50) 10^6/uL Hgb 14.6 (12.0-16.0) g/dL Hct 41.2 (37.0-47.0) % MCV 86.7 (82.0-92.0) fL MCH 30.7 (27.0-31.0) pg MCHC 35.4 (32.0-36.0) g/dL RDW 13.0 (11.5-14.5) % Plt Count 365 (150-400) 10^3/uL MPV 9.6 (7.4-10.4) fL Immature Gran % (Auto) 0.2 (0.0-5.0) % Neut % (Auto) 61.0 (50.0-70.0) % Lymph % (Auto) 29.7 (20.0-40.0) % Arthur % (Auto) 7.5 (2.0-8.0) % Eos % (Auto) 1.4 (1.0-3.0) % Baso % (Auto) 0.2 (0.0-1.0) % Immature Gran # (Auto) 0.03 (0.00-0.50) 10^3/uL Neut # (Auto) 8.73 H (2.50-7.00) 10^3/uL Lymph # (Auto) 4.25 H (1.00-4.00) 10^3/uL Arthur # (Auto) 1.07 H (0.10-0.80) 10^3/uL Eos # (Auto) 0.20 (0.10-0.30) 10^3/uL Baso # (Auto) 0.03 (0.00-0.10) 10^3/uL Sodium 144 (136-145) mmol/L Potassium 4.1 (3.3-5.3) mmol/L Chloride 109 (98-115) mmol/L Carbon Dioxide 20.0 L (21.0-32.0) mmol/L Anion Gap 19.1 H (5-15) mmol/L BUN 14 (6-25) mg/dL Creatinine 0.93 (0.51-1.17) mg/dL Est Cr Clr Drug Dosing 73.80 mL/min Estimated GFR (MDRD) > 60 mL/min Glucose 103 H (75 - 99) mg/dL Calcium 9.0 (8.7-10.3) mg/dL Total Bilirubin 0.3 (0.2-1.0) mg/dL AST 19 (15-37) U/L ALT 23 (12-78) U/L Alkaline Phosphatase 90 (46-116) IU/L Troponin I 0.08 H* (0.00-0.070) ng/mL Total Protein 6.6 (6.4-8.2) g/dL Albumin 3.30 (3.00-4.80) g/dL TSH, Ultra Sensitive 1.700 (0.340-4.820) uIU/mL Meds: Medications Discontinued Medications Generic Name Dose Route Start Last Admin Trade Name Axelq PRN Reason Stop Dose Admin Adenosine 12 mg 11/29/18 22:25 11/29/18 22:30 Adenocard IVPUSH 11/29/18 22:26 12 mg NOW ONE Administration Adenosine 6 mg 11/29/18 22:20 11/29/18 22:25 Adenocard IVPUSH 11/29/18 22:21 6 mg NOW ONE Administration Adenosine 12 mg 11/29/18 22:20 11/29/18 22:34 Adenocard IVPUSH 11/29/18 22:21 12 mg NOW ONE Administration Aspirin 324 mg 11/29/18 23:05 Aspirin PO 11/29/18 23:06 ONETIME ONE Aspirin Confirm 11/29/18 23:06 Aspirin Administered 11/29/18 23:07 Dose 324 mg .ROUTE .STK-MED ONE Diltiazem HCl 20 mg 11/29/18 21:08 11/29/18 21:10 Diltiazem IVPUSH 11/29/18 21:09 20 mg ONETIME ONE Administration Sodium Chloride 1,000 mls @ 999 mls/hr 11/29/18 20:45 11/29/18 21:00 Normal Saline IV 11/29/18 21:45 999 mls/hr .BOLUS ONE Administration Sodium Chloride Confirm 11/29/18 22:24 Normal Saline Administered 11/29/18 22:25 Dose 1,000 mls @ as directed .ROUTE .STK-MED ONE Sodium Chloride 1,000 mls @ 999 mls/hr 11/29/18 22:15 11/29/18 21:30 Normal Saline IV 11/29/18 23:15 999 mls/hr .BOLUS ONE Administration Ondansetron HCl Confirm 11/29/18 20:56 11/29/18 22:47 Zofran Administered 11/29/18 20:57 Not Given Dose 4 mg .ROUTE .STK-MED ONE Ondansetron HCl 4 mg 11/29/18 21:08 11/29/18 21:00 Zofran IVPUSH 11/29/18 21:09 4 mg ONETIME ONE Administration - Re-Assessments/Exams Free Text/Narrative Re-Assessment/Exam: 11/29/18 23:02 Through a hand IV site we gave Diltiazem 20 mg IVP which lowered HR from 175 to 165 but BP dropped to 80's systolic so wasn't repeated. IV fluids are running. We want to give adenosines so tried several times to establish an antecubital or higher IV unsuccessfully. [employer] is consulted to assist and they coordinated flight to [facility] and acceptance with cardiology there. MAP was dropping a bit so we eventually gave Adenosine through the hand IV site starting with 6 mg--no effect, 12 mg--brief effect, 12 mg again--brief effect. BP is improving so will hold off on cardioversion since flight will be here in minutes. We started a diltiazem drip. 11/29/18 23:58 Patient left via air flight in stable condition. Departure - Departure Time of Disposition: 23:17 Disposition: DC/Tfer to Acute Hospital 02 Reason for Transfer *Q: Other Condition: Good Clinical Impression: SVT (supraventricular tachycardia)
[2018-11-29] MEDS ORDERED: Adenosine 6 MG/2 ML SDV IVPUSH ONE ×3 (22:20→22:25)
[2018-11-29] MEDS ORDERED: Sodium Chloride 0.9% 1,000 ML ONE (22:24)
[2018-11-29 22:48] LABS: ANION GAP 19.1 mmol/L (5-15); CHLORIDE,CL 109 mmol/L (98-115); SODIUM,NA 144 mmol/L (136-145)
[2018-11-29] MEDS ORDERED: Aspirin 81 MG Tab.Chew ONE (23:06)
[2018-11-29] MEDS: Aspirin 81 MG Tab.Chew PO ONE (23:10)
[2018-11-30] MEDS: Aspirin 81 MG Tab.Chew PO ONE (23:10)
== END 2018-11-29 23:45 ==
LOC: KA.ED 20:43
DX: I47.1 Supraventricular tachycardia (principal); I10 Essential (primary) hypertension; M19.90 Unspecified osteoarthritis, unspecified site; F41.9 Anxiety disorder, unspecified; F32.9 Major depressive disorder, single episode, unspecified; E66.9 Obesity, unspecified; Z91.040 Latex allergy status; Z88.5 Allergy status to narcotic agent; Z79.899 Other long term (current) drug therapy; Z98.890 Other specified postprocedural states
CPT/HCPCS: 36415; 80053; 84443; 84484; 85025; 93005; 96361; 96374; 96375; 99285; J0153; J2405; J3490; J7030; A9270-GY

== ENCOUNTER 2018-12-04 11:19 | Emergency (ER) | payer BC ==
[2018-12-04] MEDS ORDERED: Metoprolol Tartrate 5 MG/5 ML SDV IVPUSH ONE (12:20)
--- NOTE | 2018-12-04 12:55 | EDM.PDOC ---
ED HPI GENERAL MEDICAL PROBLEM - General Chief Complaint: Cardiovascular Problem Stated Complaint: IRREGULAR HEART RATE Time Seen by Provider: 12/04/18 11:30 Source of Information: Reports: Patient History Limitations: Reports: No Limitations - History of Present Illness INITIAL COMMENTS - FREE TEXT/NARRATIVE: 30-year-old female presents to emergency room with complaints of racing heart rate and shortness of breath. Patient was seen in the emergency room on 11/29/18 with supraventricular tachycardia. Does she was all to my transferred up to [facility]. She was cardioverted to 6 times and ultimately put on amiodarone 400 mg daily. She was to be scheduled for an ablation outpatient. This morning at approximately 10:30 she began noticing her heart rate racing with palpitations and began to have experienced shortness of breath. Upon admission her heart rate was 178 bpm. EKG showed sinus tachycardia with marked ST abnormality possible inferior lateral subchondral injury. IV access was obtained. She was started on amiodarone drip. She is currently denying chest pain. She's not diaphoretic. She is having some shortness of breath. O2 saturations are 98% on room air. Onset: Today Onset Date: 12/04/18 Onset Time: 10:30 Duration: Minutes:, Constant Location: Reports: Chest Quality: Reports: Same as Previous Episode Severity: Moderate Improves with: Reports: None Worsens with: Reports: Movement (Activity) Associated Symptoms: Reports: Shortness of Breath. 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 Medication(s) (Amiodarone 400 mg daily) - Related Data Allergies Allergy/AdvReac Type Severity Reaction Status Date / Time hydromorphone [From Dilaudid] Allergy Shortness Verified 12/04/18 11:40 of Breath latex Allergy Rash Verified 12/04/18 11:40 Home Meds: Home Meds ALPRAZolam [Xanax] 0.25 - 0.5 mg PO Q8H PRN 03/05/18 [History] Venlafaxine [Effexor XR] 75 mg PO BEDTIME 03/05/18 [History] Acetaminophen [Tylenol Extra Strength] 1,000 mg PO Q6H PRN tablet 03/07/18 [Rx] Cholecalciferol (Vitamin D3) [Vitamin D3] 1,000 units PO DAILY 09/20/18 [History ] Cyanocobalamin (Vitamin B12) [Vitamin B12] 500 mcg PO DAILY 09/20/18 [History] Cyclobenzaprine [Flexeril] 10 mg PO ASDIRECTED 09/20/18 [History] Metoprolol Succinate [Toprol XL] 37.5 mg PO BID 10/25/18 [History] Past Medical History HEENT History: Reports: Impaired Vision Cardiovascular History: Reports: Hypertension, Other (See Below) Other Cardiovascular History: tachycardia, palpatations Respiratory History: Reports: SOB Gastrointestinal History: Reports: Other (See Below) Other Gastrointestinal History: colitis Genitourinary History: Reports: UTI, Recurrent 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 Musculoskeletal History: Reports: Arthritis Psychiatric History: Reports: Anxiety, Depression Endocrine/Metabolic History: Reports: Obesity/BMI 30+ Dermatologic History: Reports: Eczema - Infectious Disease History Infectious Disease History: Reports: Chicken Pox, Influenza - Past Surgical History HEENT Surgical History: Reports: Tonsillectomy Other HEENT Surgeries/Procedures: pseudo tumor cerebri in 2002 Respiratory Surgical History: Reports: None GI Surgical History: Reports: None Female Surgical History: Reports: None Endocrine Surgical History: Reports: None Musculoskeletal Surgical History: Reports: None Social & Family History - Family History Family Medical History: Noncontributory - Caffeine Use Caffeine Use: Reports: None Other Caffeine Use: 1 pop/ day ED ROS GENERAL - Review of Systems Review Of Systems: See Below Constitutional: Reports: Fatigue HEENT: Reports: No Symptoms Respiratory: Reports: Shortness of Breath Cardiovascular: Reports: Blood Pressure Problem, Dyspnea on Exertion. Denies: Chest Pain Endocrine: Reports: No Symptoms GI/Abdominal: Reports: No Symptoms : Reports: No Symptoms Musculoskeletal: Reports: No Symptoms Skin: Denies: Cyanosis Neurological: Reports: No Symptoms Psychiatric: Reports: Anxiety, Depression Hematologic/Lymphatic: Reports: No Symptoms Immunologic: Reports: No Symptoms ED EXAM, GENERAL - Physical Exam Exam: See Below Exam Limited By: No Limitations General Appearance: Alert, WD/WN, Anxious, Mild Distress, Obese Eye Exam: Bilateral Eye: EOMI Ears: Hearing Grossly Normal Nose: Normal Inspection Throat/Mouth: Normal Inspection, Normal Voice, No Airway Compromise Head: Atraumatic, Normocephalic Neck: Normal Inspection Respiratory/Chest: No Respiratory Distress, Lungs Clear, Normal Breath Sounds Cardiovascular: Tachycardia GI/Abdominal: Soft, Non-Tender Extremities: Normal Inspection, No Pedal Edema Neurological: Alert, Oriented, Normal Cognition, No Motor/Sensory Deficits Psychiatric: Anxious Skin Exam: Warm, Dry, Intact, Normal Color EKG INTERPRETATION EKG Date: 12/04/18 Time: 11:30 Rhythm: Other (Sinus tachycardia) Rate (Beats/Min): 178 Conrad: Normal ST-T: Other (Marked ST abnormality possible inferior lateral subchondral injury) QT: Normal Comparison: NA - No Prior EKG EKG Interpretation Comments: Sinus tachycardia Marked ST abnormality possible inferior lateral subchondral injury abnormal EKG Course - Vital Signs Last Recorded V/S: Last Vital Signs Temp 98.2 F 12/04/18 11:20 Pulse 179 H 12/04/18 11:20 Resp 25 H 12/04/18 11:20 BP 111/57 L 12/04/18 11:20 Pulse Ox 98 12/04/18 11:20 - Orders/Labs/Meds Orders: Active Orders 24 hr Category Date Time Status Amiodarone In Dextrose,Iso-Osm [Nexterone in Dextrose Med 12/04/18 12:15 Active 150 MG/100 ML] 150 mg in 100 ml IV ASDIRECTED Medication Orders Amiodarone HCl/Dextrose (Nexterone In Dextrose 150 Mg/100 Ml) 150 mg in 100 mls @ 40 mls/hr IV ASDIRECTED LEONIE; Protocol Last Titration: 12/04/18 12:39 Dose: 0 mls/hr Admin: 12/04/18 12:25 Dose: 40 mls/hr Meds: Medications Generic Name Dose Route Start Last Admin Trade Name Freq PRN Reason Stop Dose Admin Amiodarone HCl/Dextrose 150 mg in 100 mls @ 40 mls/hr 12/04/18 12:15 12:39 Nexterone In Dextrose 150 Mg/100 Ml IV Infused ASDIRECTED LEONIE Titration Protocol Discontinued Medications Generic Name Dose Route Start Last Admin Trade Name Freq PRN Reason Stop Dose Admin Metoprolol Tartrate 5 mg 12/04/18 12:20 Lopressor IVPUSH 12/04/18 12:21 ONETIME ONE - Re-Assessments/Exams Free Text/Narrative Re-Assessment/Exam: 12/04/18 13:02 Patient's heart rate was now running 164. She is stable. She is denying any new onset of chest pain. Cardiology and hospitalist were excepting that [facility]. Patient was transfer by ground ambulance. [place] wall was not given in the ER due to patient's blood pressure running in the 80s to 100 systolic. Departure - Departure Time of Disposition: 13:00 Disposition: DC/Tfer to Critical Access 66 Reason for Transfer *Q: Other (Cardio ablation, possible cardioversion) Condition: Fair Clinical Impression: Supraventricular tachycardia, Tachycardia, Paroxysmal supraventricular tachycardia Instructions: Sinus Tachycardia, Supraventricular Tachycardia, Adult, Electrical Cardioversion, Care After Referrals: Mariella Fagan MD [Primary Care Provider] - - My Orders Last 24 Hours: My Active Orders 12/04/18 12:15 Amiodarone In Dextrose,Iso-Osm [Nexterone in Dextrose 150 MG/100 ML] 150 mg in 100 ml IV ASDIRECTED - Assessment/Plan Last 24 Hours: My Active Orders 12/04/18 12:15 Amiodarone In Dextrose,Iso-Osm [Nexterone in Dextrose 150 MG/100 ML] 150 mg in 100 ml IV ASDIRECTED Assessment:: 1. Sinus tachycardia 2. Recent cardioversion with SVT. Plan: Patient was transferred to [facility] in [place] for recurrent sinus tachycardia, SVT. Amiodarone drip was started. Patient will be admitted with hospitalist and integrated marketing manager acceptance. Patient was transferred in stable condition. Lopressor was not given due to patient's low blood pressures. Heart rate improved 178 to 164.
== END 2018-12-04 12:54 | disposition critical access hospital (66) ==
LOC: KA.ED 11:19
DX: I47.1 Supraventricular tachycardia (principal); I10 Essential (primary) hypertension; M19.90 Unspecified osteoarthritis, unspecified site; F41.9 Anxiety disorder, unspecified; F32.9 Major depressive disorder, single episode, unspecified; E66.9 Obesity, unspecified; Z98.890 Other specified postprocedural states; Z79.899 Other long term (current) drug therapy; Z88.8 Allergy status to other drugs, medicaments and biological substances; Z91.040 Latex allergy status
CPT/HCPCS: 93005; 96374; 99285; J0282

== ENCOUNTER 2020-11-15 19:20 | Emergency (ER) | payer BC ==
[2020-11-15] MEDS ORDERED: Sodium Chloride 0.9% 10 ML Syringe FLUSH PRN (19:37)
--- NOTE | 2020-11-15 19:49 | EDM.PDOC ---
ED HPI GENERAL MEDICAL PROBLEM - General Chief Complaint: Gastrointestinal Problem Stated Complaint: ABDOMINAL PAIN Time Seen by Provider: 11/15/20 19:30 Source of Information: Reports: Patient History Limitations: Reports: No Limitations - History of Present Illness INITIAL COMMENTS - FREE TEXT/NARRATIVE: 40 YO HF PRESENTS TO ER WITH COMPLAINTS OF EPIGASTRIC ABDOMINAL PAIN WHICH BEGAN 2 HOURS AGO. PT REPORTS PAIN WAS GRADUAL AND CRAMPY IN CHARACTER. PT REPORTS ASSOCIATED NAUSEA WITHOUT VOMITING. PT DENIES ANY CONSTIPATION OR DIARRHEA. PT DENIES FEVER/CHILLS. PT REPORTS EATING EARLIER TODAY WITH NO ASSOCIATED PAIN OR NAUSEA. PT REPORTS 25LB WEIGHT LOSS OVER THE LAST FEW MONTHS. PT HAD BREAST CYST EXCISION EARLIER IN THE DAY. PT REPORTS SHE TOOK HYDROCODONE 10MG PRIOR TO ARRIVAL TO ER TONIGHT. Onset: Today Duration: Hour(s): (2), Getting Worse, Waxing/Waning Location: Reports: Abdomen Quality: Reports: Ache Severity: Moderate Improves with: Reports: None Worsens with: Reports: None Associated Symptoms: Reports: No Other Symptoms, Nausea/Vomiting. Denies: Cough, Fever/Chills, Shortness of Breath - Related Data Allergies Allergy/AdvReac Type Severity Reaction Status Date / Time hydromorphone [From Dilaudid] Allergy Shortness Verified 11/15/20 19:29 of Breath latex Allergy Rash Verified 11/15/20 19:29 Home Meds: Home Meds Venlafaxine HCl [Venlafaxine ER] 150 mg PO DAILY 11/15/20 [History] lisinopriL [Lisinopril] 20 mg PO DAILY 11/15/20 [History] Past Medical History HEENT History: Reports: Impaired Vision Cardiovascular History: Reports: Hypertension, Other (See Below) Other Cardiovascular History: tachycardia, palpatations Respiratory History: Reports: SOB Gastrointestinal History: Reports: Other (See Below) Other Gastrointestinal History: colitis Genitourinary History: Reports: UTI, Recurrent CABINET MOUNTER History: Reports: , Other (See Below) Other CABINET MOUNTER History: past history of hemmorrhage 2 days after delivery. Musculoskeletal History: Reports: Arthritis Psychiatric History: Reports: Anxiety, Depression Endocrine/Metabolic History: Reports: Obesity/BMI 30+ Dermatologic History: Reports: Eczema - Infectious Disease History Infectious Disease History: Reports: Chicken Pox, Influenza - Past Surgical History HEENT Surgical History: Reports: Tonsillectomy Other HEENT Surgeries/Procedures: pseudo tumor cerebri in 2003 Respiratory Surgical History: Reports: None GI Surgical History: Reports: None Female Surgical History: Reports: None Endocrine Surgical History: Reports: None Musculoskeletal Surgical History: Reports: None Social & Family History - Family History Family Medical History: No Pertinent Family History - Caffeine Use Caffeine Use: Reports: None Other Caffeine Use: 1 pop/ day ED ROS GENERAL - Review of Systems Review Of Systems: See Below Constitutional: Reports: No Symptoms HEENT: Reports: No Symptoms Respiratory: Reports: No Symptoms Cardiovascular: Reports: No Symptoms Endocrine: Reports: No Symptoms GI/Abdominal: Reports: Abdominal Pain, Decreased Appetite, Nausea. Denies: Constipation, Diarrhea : Reports: No Symptoms Musculoskeletal: Reports: No Symptoms Skin: Reports: No Symptoms Neurological: Reports: No Symptoms Psychiatric: Reports: No Symptoms Hematologic/Lymphatic: Reports: No Symptoms Immunologic: Reports: No Symptoms ED EXAM, GI/ABD - Physical Exam Exam: See Below Exam Limited By: No Limitations General Appearance: Alert, WD/WN, No Apparent Distress Head: Atraumatic, Normocephalic Neck: Normal Inspection, Supple, Non-Tender, Full Range of Motion Respiratory/Chest: No Respiratory Distress, Lungs Clear, Normal Breath Sounds, No Accessory Muscle Use, Chest Non-Tender Cardiovascular: Normal Peripheral Pulses, Regular Rate, Rhythm, No Edema, No Gallop, No JVD, No Murmur, No Rub GI/Abdominal Exam: Normal Bowel Sounds, Soft, No Organomegaly, No Distention, Tender (EPIGASTRIC AND RUQ ABDOMINAL PAIN). No: Distended, Guarding Back Exam: Normal Inspection, Full Range of Motion, NT Extremities: Normal Inspection, Normal Range of Motion, Non-Tender, Normal Capillary Refill, No Pedal Edema Neurological: Alert, Oriented, CN II-XII Intact, Normal Cognition, Normal Gait, Normal Reflexes, No Motor/Sensory Deficits Psychiatric: Normal Affect, Normal Mood Skin Exam: Warm, Dry, Intact, Normal Color, No Rash Lymphatic: No Adenopathy Course - Vital Signs Last Recorded V/S: Last Vital Signs Temp 96.5 F L 11/15/20 19:40 Pulse 71 11/15/20 19:40 Resp 22 H 11/15/20 19:40 BP 139/88 11/15/20 19:40 Pulse Ox 99 11/15/20 19:40 - Orders/Labs/Meds Orders: Active Orders 24 hr Category Date Time Status Peripheral IV Care [RC] . DIRECTED Care 11/15/20 19:37 Active UA W/MICROSCOPIC [URIN] Stat Lab 11/15/20 19:37 Ordered Sodium Chloride 0.9% [Saline Flush] Med 11/15/20 19:37 Ordered 10 ml FLUSH Q8HR PRN Peripheral IV Insertion Adult [OM.PC] Routine Oth 11/15/20 19:37 Ordered Medication Orders Sodium Chloride (Sodium Chloride 0.9% 10 Ml Syringe) 10 ml FLUSH Q8HR PRN PRN Reason: keep vein open Labs: Laboratory Tests 11/15/20 11/15/20 Range/Units 19:45 19:45 WBC 15.10 H (5.00-10.00) 10^3/uL RBC 4.44 (3.80-5.50) 10^6/uL Hgb 13.8 (12.0-16.0) g/dL Hct 39.0 (37.0-47.0) % MCV 87.8 (82.0-92.0) fL MCH 31.1 H (27.0-31.0) pg MCHC 35.4 (32.0-36.0) g/dL RDW 13.2 (11.5-14.5) % Plt Count 411 H (150-400) 10^3/uL MPV 9.5 (7.4-10.4) fL Immature Gran % (Auto) 0.1 (0.0-5.0) % Neut % (Auto) 67.2 (50.0-70.0) % Lymph % (Auto) 22.6 (20.0-40.0) % Morgan % (Auto) 8.7 H (2.0-8.0) % Eos % (Auto) 1.2 (1.0-3.0) % Baso % (Auto) 0.2 (0.0-1.0) % Neut # (Auto) 10.15 H (2.50-7.00) 10^3/uL Lymph # (Auto) 3.41 (1.00-4.00) 10^3/uL Morgan # (Auto) 1.31 H (0.10-0.80) 10^3/uL Eos # (Auto) 0.18 (0.10-0.30) 10^3/uL Baso # (Auto) 0.03 (0.00-0.10) 10^3/uL Immature Gran # (Auto) 0.02 (0.00-0.50) 10^3/uL Sodium 138 (136-145) mmol/L Potassium 3.5 (3.5-5.1) mmol/L Chloride 100 (98-107) mmol/L Carbon Dioxide 22.0 (21.0-32.0) mmol/L Anion Gap 19.5 H (5-15) mmol/L BUN 9 (7-18) mg/dL Creatinine 0.76 (0.51-1.17) mg/dL Est Cr Clr Drug Dosing TNP Estimated GFR (MDRD) > 60 mL/min Glucose 129 (70-140) mg/dL Calcium 9.0 (8.7-10.3) mg/dL Total Bilirubin 0.5 (0.2-1.0) mg/dL AST 43 H (15-37) U/L ALT 116 H (14-63) U/L Alkaline Phosphatase 119 H (46-116) U/L Total Protein 7.4 (6.4-8.2) g/dL Albumin 3.46 (3.40-5.00) g/dL Lipase 148 (73-393) U/L HCG, Quant < 1 mIU/mL Meds: Medications Generic Name Dose Route Start Last Admin Trade Name Freq PRN Reason Stop Dose Admin Sodium Chloride 10 ml 11/15/20 19:37 Sodium Chloride 0.9% 10 Ml Syringe FLUSH Q8HR PRN keep vein open Discontinued Medications Generic Name Dose Route Start Last Admin Trade Name Freq PRN Reason Stop Dose Admin Sodium Chloride 1,000 mls @ 999 mls/hr 11/15/20 19:37 11/15/20 20:01 Normal Saline IV 11/15/20 20:37 999 mls/hr .BOLUS ONE Administration Ketorolac Tromethamine 30 mg 11/15/20 19:37 11/15/20 19:58 Ketorolac 30 Mg/Ml Sdv IVPUSH 11/15/20 19:38 30 mg ONETIME ONE Administration Lorazepam 1 mg 11/15/20 20:37 Lorazepam 2 Mg/Ml Sdv IVPUSH 11/15/20 20:38 ONETIME ONE Morphine Sulfate 4 mg 11/15/20 20:16 Morphine 4 Mg/Ml Syringe IVPUSH 11/15/20 20:17 ONETIME ONE Morphine Sulfate Confirm 11/15/20 20:22 Morphine 4 Mg/Ml Vial Administered 11/15/20 20:23 Dose 4 mg .ROUTE .STK-MED ONE Morphine Sulfate 4 mg 11/15/20 20:20 11/15/20 20:25 Morphine 4 Mg/Ml Vial IVPUSH 11/15/20 20:21 4 mg ONETIME ONE Administration Ondansetron HCl 4 mg 11/15/20 19:37 11/15/20 19:55 Ondansetron 4 Mg/2 Ml Sdv IVPUSH 11/15/20 19:38 4 mg ONETIME ONE Administration Ondansetron HCl 4 mg 11/15/20 20:40 Ondansetron 4 Mg/2 Ml Sdv IVPUSH 11/15/20 20:41 ONETIME ONE Ondansetron HCl Confirm 11/15/20 20:41 Ondansetron 4 Mg/2 Ml Sdv Administered 11/15/20 20:42 Dose 4 mg .ROUTE .STK-MED ONE - Re-Assessments/Exams Free Text/Narrative Re-Assessment/Exam: 11/15/20 20:40 PT REPORTS PAIN SOMEWHAT IMPROVED BUT STILL NAUSEATED. Departure - Departure Time of Disposition: 20:40 Disposition: DC/Tfer to Acute Hospital 02 Condition: Fair Clinical Impression: Cholecystitis, Abdominal pain - Discharge Information Forms: ED Department Discharge, Interfacility Transfer [facility] Sepsis Event Note (ED) - Focused Exam Vital Signs: Vital Signs Temp Pulse Resp BP Pulse Ox 11/15/20 19:40 96.5 F L 71 22 H 139/88 99 - My Orders Last 24 Hours: My Active Orders 11/15/20 19:37 Peripheral IV Care [RC] . DIRECTED UA W/MICROSCOPIC [URIN] Stat Sodium Chloride 0.9% [Saline Flush] 10 ml FLUSH Q8HR PRN Peripheral IV Insertion Adult [OM.PC] Routine - Assessment/Plan Last 24 Hours: My Active Orders 11/15/20 19:37 Peripheral IV Care [RC] . DIRECTED UA W/MICROSCOPIC [URIN] Stat Sodium Chloride 0.9% [Saline Flush] 10 ml FLUSH Q8HR PRN Peripheral IV Insertion Adult [OM.PC] Routine Assessment:: 1. SUSPECTED CHOLECYSTITIS 2. EPIGASTRIC ABDOMINAL PAIN Plan: 1. DISCUSSED CASE WITH DR SOTELO AT [facility] WHO WILL SEE IN ER FOR ULTRASOUND OF ABDOMEN TO CONFIRM SUSPECTED CHOLECYSTITIS AND GET SURGICAL CONSULT 2. MORPHINE/ZOFRAN FOR COMFORT 3. NS @125CC/HR 4. NPO
[2020-11-15] MEDS: Ondansetron 4 MG/2 ML SDV IVPUSH ONE ×2 (19:55→20:45)
[2020-11-15] MEDS: Ketorolac 30 MG/ML SDV IVPUSH ONE (19:58)
[2020-11-15] MEDS: Sodium Chloride 0.9% 1,000 ML IV ONE (20:01)
[2020-11-15 20:22] LABS: ANION GAP 19.5 mmol/L (5-15); CHLORIDE,CL 100 mmol/L (98-107); SODIUM,NA 138 mmol/L (136-145)
[2020-11-15] MEDS: Morphine 4 MG/ML VIAL IVPUSH ONE (20:25)
[2020-11-15] MEDS: LORazepam 2 MG/ML SDV IVPUSH ONE (20:48)
[2020-11-15] MEDS: Morphine 4 MG/ML Syringe IVPUSH ONE (20:55)
[2020-11-15 21:09] VITALS: BP 130/79; PULSE 80
[2020-11-15] MEDS: Sodium Chloride 0.9% 1,000 ML IV SCH (21:15)
[2020-11-15] MEDS: Ondansetron 4 MG/2 ML SDV ONE (21:51)
[2020-11-15] MEDS: Morphine 4 MG/ML VIAL ONE (21:51)
== END 2020-11-15 21:25 ==
LOC: KA.ED 19:20
DX: K81.9 Cholecystitis, unspecified (principal); I10 Essential (primary) hypertension; E66.9 Obesity, unspecified; Z91.040 Latex allergy status; Z88.5 Allergy status to narcotic agent; Z68.37 Body mass index [BMI] 37.0-37.9, adult; Z79.899 Other long term (current) drug therapy
CPT/HCPCS: 80053; 83690; 84702; 85025; 96374; 96375; 96376; 99284; 99285-25; J1885; J2060; J2270; J2405; J7030

== ENCOUNTER 2022-04-23 19:13 | Emergency (ER) | payer BC ==
[2022-04-23] MEDS ORDERED: Sodium Chloride 0.9% 10 ML Syringe FLUSH PRN (19:50)
[2022-04-23] MEDS ORDERED: Ondansetron 4 MG/2 ML SDV IVPUSH ONE (19:52)
[2022-04-23] MEDS ORDERED: Sodium Chloride 0.9% 1,000 ML IV ONE (19:52)
[2022-04-23] MEDS ORDERED: Loperamide 2 MG Cap PO ONE (20:20)
[2022-04-23] MEDS ORDERED: NS + KCl 20mEq/L 1,000 ML IV SCH (21:30)
[2022-04-23] MEDS ORDERED: Sodium Chloride 0.9% 50 ML IV SCH (23:15)
[2022-04-23] MEDS ORDERED: Iopamidol 755 Mg/ML 100 ML Bottle IV ONE (23:15)
[2022-04-24] MEDS ORDERED: Magnesium Sulfate/Water 2 GM in Premix Bag 1 BAG IV ONE (00:36)
[2022-04-24] MEDS ORDERED: Loperamide 2 MG Cap PO ONE (00:38)
== END 2022-04-24 05:43 | disposition home or self-care (01) ==
LOC: KA.ED 19:13
DX: R10.32 Left lower quadrant pain (principal); E83.42 Hypomagnesemia; D72.829 Elevated white blood cell count, unspecified; E87.6 Hypokalemia; R19.7 Diarrhea, unspecified; I10 Essential (primary) hypertension; M19.90 Unspecified osteoarthritis, unspecified site; E66.9 Obesity, unspecified; Z68.42 Body mass index [BMI] 45.0-49.9, adult; Z88.5 Allergy status to narcotic agent; Z91.040 Latex allergy status; Z79.899 Other long term (current) drug therapy
CPT/HCPCS: 36415; 74177; 80053; 82150; 83605; 83690; 83735; 85025; 87045; 87046; 87324; 87449; 96361; 96365; 96366; 96368; 96375; 99284; 99284-25; A9270-GY; J2405; J3475; J3480; J7030; Q9967

== ENCOUNTER 2022-11-11 08:04 | Day surgery (SDC) | payer BC ==
[~2022-11-11 08:04] MED LIST: Lactated Ringers 1,000 ML IV SCH; Sodium Chloride 0.9% 10 ML Syringe FLUSH PRN
[2022-11-11] MEDS ORDERED: Propofol 200 MG/20 ML SDV IV ONE (08:05)
[2022-11-11] MEDS ORDERED: Bupivacaine 0.5% 30 ML SDV ONE (08:36)
[2022-11-11] MEDS ORDERED: Bacitracin/Neomycin/Polymyxin B Oint 0.9 GM U/D Packet ONE (08:36)
[2022-11-11] MEDS ORDERED: Midazolam 1 MG/ML 2 ML SDV ONE (08:51)
[2022-11-11] MEDS ORDERED: Propofol 200 MG/20 ML SDV ONE ×2 (08:51→09:40)
[2022-11-11] MEDS ORDERED: Lidocaine 0.5% 50 ML SDV ONE (08:52)
[2022-11-11] MEDS ORDERED: Bacitracin/Neomycin/Polymyxin B Oint 0.9 GM U/D Packet TOP ONE (09:35)
[2022-11-11] MEDS ORDERED: Bupivacaine 0.5% 10 ML SDV INFILT ONE (09:35)
== END 2022-11-11 12:39 | disposition home or self-care (01) ==
LOC: KA.SDS 08:04
PROVIDERS: ATTEND Surgery
DX: G56.03 Carpal tunnel syndrome, bilateral upper limbs (principal); I10 Essential (primary) hypertension; F33.0 Major depressive disorder, recurrent, mild; G47.33 Obstructive sleep apnea (adult) (pediatric); L30.9 Dermatitis, unspecified; F41.9 Anxiety disorder, unspecified; I21.4 Non-ST elevation (NSTEMI) myocardial infarction; I48.0 Paroxysmal atrial fibrillation; G43.909 Migraine, unspecified, not intractable, without status migrainosus; E55.9 Vitamin D deficiency, unspecified; I47.1 Supraventricular tachycardia; E66.9 Obesity, unspecified; Z91.040 Latex allergy status; Z88.5 Allergy status to narcotic agent; Z68.42 Body mass index [BMI] 45.0-49.9, adult; Z79.899 Other long term (current) drug therapy
CPT/HCPCS: J2250; J2704; J3490; J7120

== ENCOUNTER 2022-11-25 09:28 | Day surgery (SDC) | payer BC ==
[2022-11-25] MEDS ORDERED: Midazolam 1 MG/ML 2 ML SDV ONE (09:47)
[2022-11-25] MEDS ORDERED: Lidocaine 0.5% 50 ML SDV ONE (09:48)
[2022-11-25] MEDS ORDERED: Propofol 200 MG/20 ML SDV ONE (09:48)
[2022-11-25] MEDS ORDERED: Sodium Chloride 0.9% 10 ML Syringe FLUSH PRN (10:00)
[2022-11-25] MEDS ORDERED: Lactated Ringers 1,000 ML IV SCH (10:00)
[2022-11-25] MEDS ORDERED: Bupivacaine 0.5% 30 ML SDV ONE (10:55)
[2022-11-25] MEDS ORDERED: Bupivacaine 0.5% 30 ML SDV INFILT ONE (11:01)
[2022-11-25] MEDS ORDERED: Bacitracin/Neomycin/Polymyxin B Oint 0.9 GM U/D Packet TOP ONE (11:01)
[2022-11-25] MEDS ORDERED: Bacitracin/Neomycin/Polymyxin B Oint 0.9 GM U/D Packet ONE (11:10)
== END 2022-11-25 12:56 | disposition home or self-care (01) ==
LOC: KA.SDS 09:28
PROVIDERS: ATTEND Surgery
DX: G56.02 Carpal tunnel syndrome, left upper limb (principal); I10 Essential (primary) hypertension; F33.0 Major depressive disorder, recurrent, mild; G47.33 Obstructive sleep apnea (adult) (pediatric); F41.9 Anxiety disorder, unspecified; I48.0 Paroxysmal atrial fibrillation; G25.81 Restless legs syndrome; L30.9 Dermatitis, unspecified; G43.009 Migraine without aura, not intractable, without status migrainosus; I25.2 Old myocardial infarction; Z79.899 Other long term (current) drug therapy; Z88.8 Allergy status to other drugs, medicaments and biological substances; Z91.040 Latex allergy status
CPT/HCPCS: 64721; J2250; J2704; J3490; J7120